=== PATIENT | female | born 1955 | race Caucasian/White ===

== ENCOUNTER → 2020-01-23 14:19 | Outpatient (CLI) | payer MEDICARE, BC, SELFPAY ==
--- NOTE | 2020-01-23 14:40 | BD_ITS ---
STUDY: DUAL ENERGY X-RAY ABSORPTIOMETRY / DXA REASON FOR EXAM: Female, 64 years old. Age of steven 44. Pat is 147.3# and 62.5 and quot; a loss of 1.5 and quot; per pat. Past hx of smoking a long time ago for a short while. Past use of estrogen a long time ago. Type II diabetic and takes metformin. Pat takes Lamictal for seizures. Takes 150 mg of calcium. Has taken Fosamax for 8 years now just went off of it. Does not exercise. Hx of a right hip replacement. TECHNIQUE: Bone Mineral Density (BMD) measurements of lumbar spine and left hip were obtained. COMPARISON: None. FINDINGS: Lumbar Spine (L1-L4): g/cm2 (1.036) / T-score (-1.1) / Z-score (0.5) Findings are suggestive of osteopenia with a low fracture risk. Increased kyphosis. Left Femur Total: g/cm2 (0.793) / T-score (-1.7) / Z-score (-0.5) Left Femoral Neck: g/cm2 (0.724) / T-score (-2.3) / Z-score (-0.8) BD/Dexa Bone Density Study IMPRESSION: The patient is considered osteopenic as outlined below according to World Jovi Organization (WHO) criteria with a high fracture risk. Reference Information: The T-score is the number of standard deviations above or below the standard which is normal for young adults at their peak bone mineral density. The World Health Organization (WHO) interprets the T-scores as follows: Above -1 Normal bone density Between -1 and -2.5 Osteopenia Equal to / or below -2.5 Osteoporosis As a practical clinical guideline, osteopenia may be graded as follows: Mild -1 through -1.5 Moderate -1.6 through -2.0 Severe -2.1 through -2.4 The Z-score is the number of standard deviations above or below age-matched controls. A Z-score of less than -1.5 would be considered abnormal. References: 1. NIH Osteoporosis and Related Bone Diseases http://www.osteo.org 2. International Society for Clinical Densitometry http://www.iscd.org 3. National Osteoporosis Foundation http://www.nof.org Electronically Signed: Jimy Foster, at 9:14 EDT , Service support ,
== END ==
PROVIDERS: PCP Family Medicine; Referring Provider Family Medicine; Visit Provider Family Medicine
DX: M81.0 Age-related osteoporosis without current pathological fracture (principal)
CPT/HCPCS: 77080

== ENCOUNTER → 2020-05-09 16:10 | Outpatient (CLI) | payer MEDICARE, BC, SELFPAY ==
[2020-05-09 18:05] LABS: Hemoglobin A1c 6.2 % (3.8-5.6); Vitamin D,25 Hydroxy 43.3 ng/mL
[2020-05-09 18:07] LABS: Absolute Lymphocyte Count 1.39 X10^3/uL (0.83-4.51); Absolute Neutrophil Count 3.4 X10^3/uL (2.0-7.7); Basophil# 0.04 X10^3/uL; Basophil% 0.7 % (0-1); Eosinophil# 0.23 X10^3/uL; Eosinophils% 4.2 % (0-5); Hemoglobin 12.4 g/dL (12.0-15.0); Lymphocyte # 1.39 X10^3/ul (4.0); Lymphocyte % 25.2 % (19-41); Mean Corp Hgb Conc 31.8 g/dL (32-36); Mean Corpuscular Hgb 30.2 pg (27.0-32.0); Mean Corpuscular Volume 95.1 fL (81-99); Mean Platelet Vol. 11.9 fl (6.2-12.0); Monocyte# 0.45 X10^3/uL; Monocyte% 8.2 % (0-10); NRBC Flagged by Analyzer 0 % (0-5); Neutrophil % 61.5 % (47-70); Platelet Count 160 K/mm3 (150-450); RBC Distribution Width CV 12.6 % (11.6-14.6); RBC Distribution Width SD 44.4 fl (35.1-43.9); White Blood Count 5.5 K/mm3 (4.4-11.0)
[2020-05-09 18:15] LABS: ALB/GLOB Ratio 1.1 RATIO (0.9-2.4); AST(SGOT) 14 U/L (15-37); Alanine Aminotransfer ALT/SGPT 20 U/L (13-56); Albumin, Serum 4.1 g/dL (3.2-5.0); Alkaline Phosphatase 48 U/L (45-117); Anion Gap 8 (5-15); BUN 31 mg/dL (7-18); BUN/Creat Ratio 30.7 RATIO (10-20); Calcium,Total 9.6 mg/dL (8.5-10.1); Chloride 103 mmol/L (98-107); Cholesterol 158 mg/dL (200); Creatinine, Serum 1.01 mg/dL (0.55-1.02); EST Glomerular Filtration Rate 58 mL/min (>60); Est Glom Filt Rate - Afr Amer 71 mL/min (>60); Globulin 3.8 g/dL (2.2-4.2); Glucose 153 mg/dL (74-106); High Density Lipoprotein 50 mg/dL; Phosphorus 3.6 mg/dL (2.5-4.9); Potassium 3.9 mmol/L (3.5-5.1); Protein, Total 7.9 g/dL (6.4-8.2); Sodium Level 141 mmol/L (136-145); Thyroid Stim Hormone (TSH) 1.08 uIU/mL (0.358-3.74); Triglycerides 200 mg/dL; Very Low Density Lipoprotein 40 mg/dL (5-40)
== END ==
PROVIDERS: PCP Family Medicine; Referring Provider Family Medicine; Visit Provider Family Medicine
DX: I10 Essential (primary) hypertension (principal); E11.9 Type 2 diabetes mellitus without complications; E78.00 Pure hypercholesterolemia, unspecified; M85.80 Other specified disorders of bone density and structure, unspecified site
CPT/HCPCS: 36415; 80053; 80061; 82306; 83036; 84100; 84443; 85025

== ENCOUNTER → 2020-10-10 17:49 | Outpatient (CLI) | payer MEDICARE, BC, SELFPAY ==
[2020-10-10 19:28] LABS: Probe Check PASS; Specimen Processing Control PASS
== END ==
PROVIDERS: PCP Family Medicine; Referring Provider Family Medicine; Visit Provider Family Medicine
DX: J01.90 Acute sinusitis, unspecified (principal)
CPT/HCPCS: 87635; U0002

== ENCOUNTER → 2020-10-14 10:00 | Outpatient (CLI) | payer MEDICARE, BC, SELFPAY ==
[2020-10-14 12:22] LABS: Hemoglobin A1c 6.4 % (3.8-5.6)
[2020-10-14 12:24] LABS: Vitamin D,25 Hydroxy 52.6 ng/mL
[2020-10-14 12:29] LABS: AST(SGOT) 16 U/L (15-37); Alanine Aminotransfer ALT/SGPT 21 U/L (13-56); Albumin, Serum 3.9 g/dL (3.2-5.0); Alkaline Phosphatase 54 U/L (45-117); Anion Gap 7 (5-15); BUN 31 mg/dL (7-18); BUN/Creat Ratio 30.4 RATIO (10-20); Calcium,Total 10.2 mg/dL (8.5-10.1); Chloride 102 mmol/L (98-107); Cholesterol 146 mg/dL (200); Creatinine, Serum 1.02 mg/dL (0.55-1.02); EST Glomerular Filtration Rate 58 mL/min (>60); Est Glom Filt Rate - Afr Amer 70 mL/min (>60); Globulin 3.8 g/dL (2.2-4.2); Glucose 140 mg/dL (74-106); High Density Lipoprotein 39 mg/dL; Potassium 4.4 mmol/L (3.5-5.1); Protein, Total 7.7 g/dL (6.4-8.2); Sodium Level 138 mmol/L (136-145); Thyroid Stim Hormone (TSH) 0.93 uIU/mL (0.358-3.74); Triglycerides 106 mg/dL; Very Low Density Lipoprotein 21 mg/dL (5-40)
[2020-10-14 12:37] LABS: Microalbumin,Random Urine 11.8 mg/L (NO RANGE EST.); PTHIN 9.3 pg/mL (18.4-80.1)
== END ==
PROVIDERS: PCP Family Medicine; Referring Provider Family Medicine; Visit Provider Family Medicine
DX: E83.52 Hypercalcemia (principal); E11.69 Type 2 diabetes mellitus with other specified complication
CPT/HCPCS: 36415; 80053; 80061; 82043; 82306; 82570; 83036; 83970; 84443

== ENCOUNTER → 2020-12-27 07:08 | Outpatient (CLI) | payer MEDICARE, BC, SELFPAY ==
[2020-12-17 10:18] VITALS: BMI 25.6
--- NOTE | 2020-12-27 07:09 | MRI_ITS ---
STUDY: MRI BRAIN WITH AND WITHOUT CONTRAST REASON FOR EXAM: Female, 65 years old. Hx of Epilepsy, new onset of shaking in the morning TECHNIQUE: Standardized multiplanar fat and water weighted pulse sequences were obtained. 13ml DOtarem via IV was administered for the contrast portion of the examination. COMPARISON: None. FINDINGS: There are mild scattered white matter gliotic foci, age-appropriate. There are no focal cortical brain lesions. There is no acute infarct or abnormal enhancement. The graft there are no extra parenchymal fluid collections, hydrocephalus or herniation. Major vascular flow structures are intact. MRI/Brain W/WO Contrast IMPRESSION: 1. No acute or focal abnormalities. 2. Mild age-appropriate white matter changes. Electronically Signed: Scarlet Diego MD at 20:13 EDT Tel , Service support ,
[2020-12-27 08:01] LABS: CREATININE FINGERSTICK 1.3 mg/dL (0.55-1.02)
== END ==
PROVIDERS: PCP Family Medicine; Referring Provider Psychiatry & Neurology Neurology; Visit Provider Psychiatry & Neurology Neurology
DX: G40.909 Epilepsy, unspecified, not intractable, without status epilepticus (principal)
CPT/HCPCS: 70553; A9575

== ENCOUNTER → 2021-01-10 09:17 | Outpatient (CLI) | payer MEDICARE, BC, SELFPAY ==
[2020-12-17 10:18] VITALS: BMI 25.6
[2021-01-10 10:38] LABS: Hemoglobin A1c 6.6 % (3.8-5.6)
[2021-01-10 10:39] LABS: Vitamin D,25 Hydroxy 44.2 ng/mL
[2021-01-10 10:56] LABS: ALB/GLOB Ratio 1.1 RATIO (0.9-2.4); AST(SGOT) 22 U/L (15-37); Alanine Aminotransfer ALT/SGPT 21 U/L (13-56); Alkaline Phosphatase 54 U/L (45-117); Anion Gap 6 (5-15); BUN 27 mg/dL (7-18); Calcium,Total 9.6 mg/dL (8.5-10.1); Chloride 104 mmol/L (98-107); Cholesterol 129 mg/dL (200); Creatinine, Serum 0.75 mg/dL (0.55-1.02); EST Glomerular Filtration Rate 82 mL/min (>60); Est Glom Filt Rate - Afr Amer 99 mL/min (>60); Globulin 3.6 g/dL (2.2-4.2); Glucose 139 mg/dL (74-106); High Density Lipoprotein 46 mg/dL; Phosphorus 2.9 mg/dL (2.5-4.9); Potassium 4.4 mmol/L (3.5-5.1); Protein, Total 7.6 g/dL (6.4-8.2); Sodium Level 138 mmol/L (136-145); Triglycerides 86 mg/dL; Very Low Density Lipoprotein 17 mg/dL (5-40)
[2021-01-10 12:50] LABS: Microalbumin,Random Urine 32.7 mg/L (NO RANGE EST.); Microalbumin:Creatinine Ratio 49.4 mg/g CRE (<30 mg/g CRE)
== END ==
PROVIDERS: PCP Family Medicine; Referring Provider Family Medicine; Visit Provider Family Medicine
DX: E11.9 Type 2 diabetes mellitus without complications (principal); E83.52 Hypercalcemia
CPT/HCPCS: 36415; 80053; 80061; 82043; 82306; 82330; 82570; 83036; 83970; 84100

== ENCOUNTER → 2021-01-28 08:07 | Outpatient (CLI) | payer MEDICARE, BC, SELFPAY ==
[2020-12-17 10:18] VITALS: BMI 25.6
[2021-01-28 08:51] LABS: Ammonia < 10.0 umol/L (11-32)
[2021-01-28 09:27] LABS: Vitamin B12 355 pg/mL (211-911)
[2021-01-30 16:12] LABS: Free Kappa Light Chains 21.6 mg/L (3.3-19.4); Free Lambda Light Chains 18.7 mg/L (5.7-26.3)
[2021-01-30 16:58] LABS: Lamotrigine (Lamictal) Level 5.2 ug/mL (2.0-20.0)
== END ==
PROVIDERS: PCP Family Medicine; Referring Provider Psychiatry & Neurology Neurology; Visit Provider Psychiatry & Neurology Neurology
DX: G40.909 Epilepsy, unspecified, not intractable, without status epilepticus (principal)
CPT/HCPCS: 36415; 82140; 82542; 82607; 82746; 83883

== ENCOUNTER → 2021-02-17 06:23 | Outpatient (CLI) | payer MEDICARE, BC, SELFPAY ==
[2020-12-17 10:18] VITALS: BMI 25.6
--- NOTE | 2021-02-17 08:16 | TELEMED_ITS ---
[facility] has confirmed receipt of a request for visit. This document confirms receipt of the order initiating the consult. To find the results of the consultation, please view the patient's reports for the scanned Telemed Consult.
== END ==
PROVIDERS: PCP Family Medicine; Referring Provider Psychiatry & Neurology Neurology; Visit Provider Psychiatry & Neurology Neurology
DX: G40.909 Epilepsy, unspecified, not intractable, without status epilepticus (principal)
CPT/HCPCS: 95819

== ENCOUNTER → 2021-04-15 08:32 | Outpatient (CLI) | payer MEDICARE, BC, SELFPAY ==
[2021-04-15 10:06] LABS: Absolute Lymphocyte Count 1.36 X10^3/uL (0.83-4.51); Absolute Neutrophil Count 4.7 X10^3/uL (2.0-7.7); Basophil# 0.03 X10^3/uL; Basophil% 0.4 % (0-1); Eosinophil# 0.24 X10^3/uL; Eosinophils% 3.4 % (0-5); Hematocrit 34.1 % (37-47); Hemoglobin 10.7 g/dL (12.0-15.0); Lymphocyte # 1.36 X10^3/ul (0.83-4.51); Lymphocyte % 19.3 % (19-41); Mean Corp Hgb Conc 31.4 g/dL (32-36); Mean Corpuscular Hgb 29.3 pg (27.0-32.0); Mean Corpuscular Volume 93.4 fL (81-99); Mean Platelet Vol. 10.4 fl (6.2-12.0); Monocyte# 0.61 X10^3/uL; Monocyte% 8.7 % (0-10); NRBC Flagged by Analyzer 0 % (0-5); Neutrophil # 4.74 X10^3/uL (2.7-7.7); Neutrophil % 67.3 % (47-70); Platelet Count 537 K/mm3 (150-450); RBC Distribution Width CV 14.5 % (11.6-14.6); RBC Distribution Width SD 49.1 fl (35.1-43.9); Red Blood Count 3.65 M/mm3 (4.2-5.4)
[2021-04-15 10:27] LABS: AST(SGOT) 18 U/L (15-37); Alanine Aminotransfer ALT/SGPT 18 U/L (13-56); Albumin, Serum 3.9 g/dL (3.2-5.0); Alkaline Phosphatase 43 U/L (45-117); Anion Gap 9 (5-15); BUN 39 mg/dL (7-18); BUN/Creat Ratio 31.7 RATIO (10-20); Calcium,Total 10.1 mg/dL (8.5-10.1); Chloride 101 mmol/L (98-107); Cholesterol 124 mg/dL (200); Creatinine, Serum 1.23 mg/dL (0.55-1.02); EST Glomerular Filtration Rate 46 mL/min (>60); Est Glom Filt Rate - Afr Amer 56 mL/min (>60); Globulin 4.1 g/dL (2.2-4.2); Glucose 110 mg/dL (74-106); High Density Lipoprotein 35 mg/dL; Potassium 4.6 mmol/L (3.5-5.1); Sodium Level 138 mmol/L (136-145); Triglycerides 113 mg/dL; Very Low Density Lipoprotein 23 mg/dL (5-40)
[2021-04-15 10:34] LABS: Hemoglobin A1c 6.5 % (3.8-5.6)
[2021-04-15 10:50] LABS: Microalbumin,Random Urine 32.4 mg/L (NO RANGE EST.); Microalbumin:Creatinine Ratio 39.4 mg/g CRE (<30 mg/g CRE)
== END ==
PROVIDERS: PCP Family Medicine; Referring Provider Family Medicine; Visit Provider Family Medicine
DX: E83.119 Hemochromatosis, unspecified (principal); E11.69 Type 2 diabetes mellitus with other specified complication; E11.59 Type 2 diabetes mellitus with other circulatory complications
CPT/HCPCS: 36415; 80053; 80061; 82043; 82570; 83036; 85025

== ENCOUNTER → 2021-04-30 08:28 | Outpatient (CLI) | payer MEDICARE, BC, SELFPAY ==
--- NOTE | 2021-04-30 08:52 | RAD_ITS ---
STUDY: X-RAY - ESOPHAGUS (BARIUM SWALLOW) WITH FLUOROSCOPY REASON FOR EXAM: Female, 65 years old. DYSPHAGIA TECHNIQUE: 17 view(s) of the esophagus were obtained following swallowing of barium. FLUOROSCOPY TIME (if supplied): (41 seconds) minutes/seconds COMPARISON: None. FINDINGS: There is no demonstrated esophageal foreign body. There is no demonstrated stricture or mucosal abnormality. There is a small hiatal hernia of the fundus of the stomach. The patient ingested a 12 mm tablet of barium without any difficulty. There is atherosclerotic calcification of the aortic arch with tortuosity of the descending aorta. Normal visualized pulmonary parenchyma. There are diffuse degenerative changes of the visualized thoracic spine. RAD/Esophagus Dual Contrast IMPRESSION: Small sliding hiatal hernia without gastroesophageal reflux. Electronically Signed: Jimy Foster MD at 15:19 EDT , Service support ,
[2021-04-30 09:47] LABS: Ammonia < 10.0 umol/L (11-32)
[2021-05-02 18:07] LABS: Albumin 4.4 g/dL (2.9-4.4); Alpha-1-Globulins 0.2 g/dL (0.0-0.4); Alpha-2-Globulins 1.1 g/dL (0.4-1.0); Gamma Globulin 0.8 g/dL (0.4-1.8); Immunoglobulin A 189 mg/dL (87-352); Immunoglobulin G 784 mg/dL (586-1602); Immunoglobulin M 143 mg/dL (26-217); PROEL- TOTAL PROTEIN 7.5 g/dL (6.0-8.5)
[2021-05-02 18:17] LABS: Lamotrigine (Lamictal) Level 6.5 ug/mL (2.0-20.0)
== END ==
PROVIDERS: Nurse Practitioner Family; PCP Family Medicine; Visit Provider Family Medicine
DX: R13.10 Dysphagia, unspecified (principal); G40.909 Epilepsy, unspecified, not intractable, without status epilepticus; G62.9 Polyneuropathy, unspecified
CPT/HCPCS: 36415; 74221; 82140; 82542; 82784; 84165; 86334; 86335

== ENCOUNTER → 2021-05-27 12:10 | Outpatient (CLI) | payer MEDICARE, BC, SELFPAY ==
[2021-05-27 15:26] LABS: Anion Gap 7 (5-15); BUN 24 mg/dL (7-18); BUN/Creat Ratio 22.4 RATIO (10-20); Calcium,Total 10.3 mg/dL (8.5-10.1); Chloride 102 mmol/L (98-107); Creatinine, Serum 1.07 mg/dL (0.55-1.02); EST Glomerular Filtration Rate 54 mL/min (>60); Est Glom Filt Rate - Afr Amer 66 mL/min (>60); Glucose 89 mg/dL (74-106); Potassium 4.5 mmol/L (3.5-5.1); Sodium Level 136 mmol/L (136-145)
== END ==
PROVIDERS: PCP Family Medicine; Referring Provider Family Medicine; Visit Provider Family Medicine
DX: N18.9 Chronic kidney disease, unspecified (principal)
CPT/HCPCS: 36415; 80048

== ENCOUNTER 2021-08-11 08:30 | Outpatient (CLI) | payer MEDICARE, BC, SELFPAY ==
[2021-08-11 10:14] LABS: Absolute Lymphocyte Count 1.01 X10^3/uL (0.83-4.51); Absolute Neutrophil Count 3.5 X10^3/uL (2.0-7.7); Basophil# 0.04 X10^3/uL; Basophil% 0.8 % (0-1); Eosinophil# 0.23 X10^3/uL; Eosinophils% 4.4 % (0-5); Hematocrit 34.3 % (37-47); Hemoglobin 10.8 g/dL (12.0-15.0); Lymphocyte # 1.01 X10^3/ul (0.83-4.51); Lymphocyte % 19.5 % (19-41); Mean Corp Hgb Conc 31.5 g/dL (32-36); Mean Corpuscular Hgb 27.8 pg (27.0-32.0); Mean Corpuscular Volume 88.4 fL (81-99); Mean Platelet Vol. 10.4 fl (6.2-12.0); Monocyte# 0.39 X10^3/uL; Monocyte% 7.5 % (0-10); NRBC Flagged by Analyzer 0 % (0-5); Neutrophil # 3.49 X10^3/uL (2.7-7.7); Neutrophil % 67.4 % (47-70); Platelet Count 213 K/mm3 (150-450); RBC Distribution Width CV 15.3 % (11.6-14.6); RBC Distribution Width SD 49.5 fl (35.1-43.9); Red Blood Count 3.88 M/mm3 (4.2-5.4); White Blood Count 5.2 K/mm3 (4.4-11.0)
[2021-08-11 10:32] LABS: Vitamin D,25 Hydroxy 44.2 ng/mL
[2021-08-11 10:37] LABS: AST(SGOT) 16 U/L (15-37); Alanine Aminotransfer ALT/SGPT 19 U/L (13-56); Alkaline Phosphatase 44 U/L (45-117); Anion Gap 5 (5-15); BUN 22 mg/dL (7-18); BUN/Creat Ratio 23.2 RATIO (10-20); Calcium,Total 10.1 mg/dL (8.5-10.1); Chloride 107 mmol/L (98-107); Cholesterol 129 mg/dL (200); Creatinine, Serum 0.95 mg/dL (0.55-1.02); EST Glomerular Filtration Rate 62 mL/min (>60); Est Glom Filt Rate - Afr Amer 75 mL/min (>60); Globulin 3.9 g/dL (2.2-4.2); Glucose 114 mg/dL (74-106); High Density Lipoprotein 52 mg/dL; Magnesium 2.1 mg/dL (1.6-2.6); Potassium 4.5 mmol/L (3.5-5.1); Protein, Total 7.9 g/dL (6.4-8.2); Sodium Level 139 mmol/L (136-145); Triglycerides 57 mg/dL; Very Low Density Lipoprotein 11 mg/dL (5-40)
[2021-08-11 10:49] LABS: Hemoglobin A1c 6.5 % (3.8-5.6)
== END 2021-08-11 23:59 | disposition short-term general hospital (02) ==
LOC: MFPLAB 08:32
PROVIDERS: PCP Family Medicine; Visit Provider Family Medicine
DX: E11.59 Type 2 diabetes mellitus with other circulatory complications (principal); E11.69 Type 2 diabetes mellitus with other specified complication; E11.21 Type 2 diabetes mellitus with diabetic nephropathy; M81.0 Age-related osteoporosis without current pathological fracture
CPT/HCPCS: 36415; 80053; 80061; 82043; 82306; 82570; 83036; 83735; 85025

== ENCOUNTER 2021-10-23 11:10 | Outpatient (CLI) | payer MEDICARE, BC, SELFPAY ==
[2021-10-23 12:22] LABS: ALB/GLOB Ratio 1.1 RATIO (0.9-2.4); AST(SGOT) 20 U/L (15-37); Alanine Aminotransfer ALT/SGPT 26 U/L (13-56); Albumin, Serum 4.3 g/dL (3.2-5.0); Alkaline Phosphatase 50 U/L (45-117); Anion Gap 3 (5-15); BUN 20 mg/dL (7-18); BUN/Creat Ratio 20.6 RATIO (10-20); Chloride 106 mmol/L (98-107); Creatinine, Serum 0.97 mg/dL (0.55-1.02); EST Glomerular Filtration Rate 61 mL/min (>60); Est Glom Filt Rate - Afr Amer 74 mL/min (>60); Glucose 123 mg/dL (74-106); Potassium 4.3 mmol/L (3.5-5.1); Protein, Total 8.3 g/dL (6.4-8.2); Sodium Level 138 mmol/L (136-145)
[2021-10-23 12:27] LABS: Vitamin D,25 Hydroxy 43.9 ng/mL
== END 2021-10-23 23:59 | disposition home or self-care (01) ==
LOC: MFPLAB 11:11
PROVIDERS: PCP Family Medicine; Referring Provider Family Medicine; Visit Provider Family Medicine
DX: M81.0 Age-related osteoporosis without current pathological fracture (principal)
CPT/HCPCS: 36415; 80053; 82306

== ENCOUNTER → 2022-01-27 | Outpatient (CLI) | payer MEDICARE, BC, SELFPAY ==
--- NOTE | 2022-01-27 09:48 | BI_ITS ---
MAMMOGRAPHY - BILATERAL SCREENING REASON FOR EXAM: Female, 66 years old. Routine annual screening examination. PERTINENT HISTORY: Aunt with breast cancer. TECHNIQUE: Digital bilateral breast yosi (3D mammographic acquisition) in the CC and MLO projections. 2-D mediolateral oblique (MLO) and craniocaudad (CC) views of both breasts were obtained. CAD: Full Field Digital Mammography with Computer Added Detection was performed. COMPARISON: Comparison is made with prior outside examination of 02/05/2020. FINDINGS: Breast Composition: There are scattered areas of fibroglandular density. Stable 1 cm x 1 cm well-defined nodule in the deep slightly inferior central portion of the right breast. Correlation with ultrasound is recommended. No other significant abnormalities are identified. There has been no significant change since the prior study. BI/SCRN MAMM (CAD)W/YOSI BILAT IMPRESSION: Stable bilateral screening mammogram. Correlation with a targeted ultrasound of the right breast as described. ASSESSMENT CATEGORY: BIRADS Category 0: Incomplete. Need additional imaging evaluation. A letter regarding these results will be sent to the patient by the facility within 30 days. Approximately 10% of breast cancers are not detected by mammography. A normal mammogram should not delay biopsy of a clinically suspicious abnormality. [id number] Electronically Signed: Jimy Foster MD at 13:29 EDT ,
--- NOTE | 2022-01-27 09:52 | BD_ITS ---
STUDY: DUAL ENERGY X-RAY ABSORPTIOMETRY / DXA REASON FOR EXAM: Female, 66 years old. 733.00OsteoporosisBONE DENSITY REASON FOR EXAM TECHNIQUE: Bone Mineral Density (BMD) measurements of lumbar spine and bilateral hips were obtained. COMPARISON: Comparison is made with prior study 01/23/2020. FINDINGS: Lumbar Spine (L1-L4): g/cm2 (0.912) / T-score (-1.1) / Z-score (0.8) Findings are suggestive of osteopenia with a low fracture risk. Left Femur Total: g/cm2 (0.733) / T-score (-1.7) / Z-score (-0.3) Left Femoral Neck: g/cm2 (0.569) / T-score (-2.5) / Z-score (-0.9) The T-Scores on the most recent prior examination were: Lumbar Spine (L1-L4): There has been worsening of bone density since the previous examination. Left Femur Total: which represents no significant change. . BD/Dexa Bone Density Study IMPRESSION: The patient is considered osteopenic as outlined below according to World Jovi Organization (WHO) criteria with a high fracture risk. There has been worsening of bone density since the previous examination. Reference Information: The T-score is the number of standard deviations above or below the standard which is normal for young adults at their peak bone mineral density. The World Health Organization (WHO) interprets the T-scores as follows: Above -1 Normal bone density Between -1 and -2.5 Osteopenia Equal to / or below -2.5 Osteoporosis As a practical clinical guideline, osteopenia may be graded as follows: Mild -1 through -1.5 Moderate -1.6 through -2.0 Severe -2.1 through -2.4 The Z-score is the number of standard deviations above or below age-matched controls. A Z-score of less than -1.5 would be considered abnormal. References: 1. NIH Osteoporosis and Related Bone Diseases www osteo.org 2. International Society for Clinical Densitometry www iscd.org 3. National Osteoporosis Foundation www nof.org Electronically Signed: Jimy Foster MD at 15:22 EDT ,
== END | disposition home or self-care (01) ==
LOC: OPBD 09:44
PROVIDERS: PCP Family Medicine; Referring Provider Family Medicine; Visit Provider Family Medicine
DX: M81.0 Age-related osteoporosis without current pathological fracture (principal); Z12.31 Encounter for screening mammogram for malignant neoplasm of breast
CPT/HCPCS: 77063; 77067; 77080

== ENCOUNTER → 2022-01-29 | Outpatient (CLI) | payer MEDICARE, BC, SELFPAY ==
--- NOTE | 2022-01-29 10:59 | US_ITS ---
STUDY: ULTRASOUND BREAST - RIGHT REASON FOR EXAM: Female, 66 years old. Abnormal screening mammogram. TECHNIQUE: Axial and longitudinal images of the RIGHT breast were performed with a high resolution ultrasound transducer. # OF IMAGES: 22 COMPARISON: Comparison is made with prior mammogram dated 01/27/2022. FINDINGS: RIGHT Breast: The mammographic abnormality corresponds to a 6 mm x 9 mm x 5 mm defined hypoechoic nodule at the 6 o''clock position of the breast at 6 cm from nipple biopsy recommended. US/Breast Limited Unilateral IMPRESSION: 6 mm x 9 mm x 5 mm well-defined hypoechoic nodule at the 6 o''clock position of the breast at 6 cm from nipple. Biopsy recommended. ASSESSMENT CATEGORY: BIRADS Category 4: Suspicious - Biopsy Should Be Considered. A letter regarding these results will be sent to the patient by the facility within 30 days. Electronically Signed: Jimy Foster MD at 11:50 EDT ,
== END | disposition home or self-care (01) ==
LOC: OPUS 10:58
PROVIDERS: PCP Family Medicine; Visit Provider Family Medicine
DX: R92.8 Other abnormal and inconclusive findings on diagnostic imaging of breast (principal)
CPT/HCPCS: 76642

== ENCOUNTER 2022-02-09 13:06 | Outpatient (CLI) | payer MEDICARE, BC, SELFPAY ==
--- NOTE | 2022-02-09 15:30 | BRBX_PTH ---
PATIENT: OVI RICHARDSON LOC: [facility] U#:[id number] AGE/SX: 66/F ROOM: RE02/09/[address]: Dr. Conner Deleon MD : 1955 BED: DIS: 02/09/2022 SPEC #: [id number] RECD: 02/09/22 16:15 STATUS: ZARI WILLIAMSON #: [id number] JANE: 02/09/22 15:[address]: Conner Deleon DEPT: SURGICAL PATHOLOGY RECD BY: Gato Jerez ENTERED: 02/10/22 06:41 SP TYPE: BREAST BX OTHR DR: Dr. Be Grullon MD Tissues: Right breast, NOS Procedures: Surgery Specimen Level IV HEADER OPERATION: Right breast biopsy PRE-OP DIAGNOSIS: Abnormal right breast ultrasound TISSUE SUBMITTED: Right breast tissue FIXATION TIME: 28 hours MICROSCOPIC DIAGNOSIS Right breast, core biopsy: Hyalinized fibroadenoma. Negative for atypia or malignancy. See comment. ARABELLA:panfilo 02/11/2022 COMMENT Correlation with clinical, radiologic findings and appropriate follow up are necessary. MICROSCOPIC DESCRIPTION Slides are reviewed. GROSS DESCRIPTION Received in fixative is one container labeled with the patient's name and designated right breast. The specimen consists of multiple elongated fragments of jang-yellow fibroadipose tissue that in aggregate measure 0.8 x 0.8 x 0.1 cm. The entire specimen is submitted in one cassette. / ARABELLA:panfilo 02/10/2022 TC:1 CPT: [id number]
--- NOTE | 2022-02-09 15:48 | BI_ITS ---
MAMMOGRAPHY - UNILATERAL DIAGNOSTIC: RIGHT BREAST REASON FOR EXAM: Female, 66 years old. Post right biopsy clip placement. PERTINENT HISTORY: Abnormal screening mammogram. Ultrasound-guided breast biopsy. TECHNIQUE: Digital unilateral breast nicol (3D mammographic acquisition) in the CC and MLO projections. 2-D mediolateral oblique (MLO) and craniocaudad (CC) views of both breasts were obtained. CAD: Full Field Digital Mammography with Computer Added Detection was performed. COMPARISON: Comparison is made with prior mammogram dated 01/27/2022. FINDINGS: Breast Composition: There are scattered areas of fibroglandular density. A tissue clip marker is seen within the nodular density in the deep inferior slightly lateral aspect of the breasts. No other significant abnormalities are identified. BI/DIAG MAMM W/CAD, UNILAT IMPRESSION: Status post biopsy of the nodular density in the right breast as described. Tissue clip marker is seen within it. ASSESSMENT CATEGORY: BIRADS Category 2: Benign. A letter regarding these results will be sent to the patient by the facility within 30 days. Approximately 10% of breast cancers are not detected by mammography. A normal mammogram should not delay biopsy of a clinically suspicious abnormality. Electronically Signed: Jimy Foster MD at 8:34 EDT ,
== END 2022-02-09 23:59 | disposition home or self-care (01) ==
LOC: OPBI 02-12 13:07
PROVIDERS: PCP Family Medicine; Referring Provider Surgery; Visit Provider Surgery
DX: R92.8 Other abnormal and inconclusive findings on diagnostic imaging of breast (principal); R92.2 Inconclusive mammogram
CPT/HCPCS: 77065; 88305

== ENCOUNTER → 2022-02-09 | Outpatient (CLI) | payer MEDICARE, BC, SELFPAY | END | disposition home or self-care (01) | LOC: LABSPEC 16:31 | PROVIDERS: PCP Family Medicine; Referring Provider Surgery; Visit Provider Surgery | DX: Z00.00 Encounter for general adult medical examination without abnormal findings (principal) ==

== ENCOUNTER → 2022-02-12 | Outpatient (CLI) | payer MEDICARE, BC, SELFPAY ==
[2022-02-12 10:00] LABS: Bacteria 0 SEEN /hpf (None Seen); Mucous, Urine 0 SEEN /hpf (<or=2+); Red Blood Cells-Urine 0 SEEN /hpf (0-5); Squamous Epithelial Cells - UA 0 SEEN /hpf (5-10)
[2022-02-12 12:11] LABS: Color, Urine Straw (Yellow); Glucose, Dipstick 50 mg/dl (Normal); Ketone-Dipstick Negative (Negative); Leukocyte Esterase-Dipstick 500 /ul (Negative); Nitrite-Dipstick Negative (Negative); Occult Blood-Urine Negative /ul (Negative); Protein-Dipstick Negative (Negative); Urine Bilirubin Dipstick Negative (Negative); Urine Clarity Clear (Clear); Urine Urobilinogen Normal (Normal); Urine pH 6.5 (5.0 - 8.0)
[2022-02-12 12:12] LABS: Absolute Lymphocyte Count 0.97 X10^3/uL (0.83-4.51); Absolute Neutrophil Count 3.5 X10^3/uL (2.0-7.7); Basophil# 0.03 X10^3/uL; Basophil% 0.6 % (0-1); Eosinophil# 0.26 X10^3/uL; Hematocrit 34.8 % (37-47); Hemoglobin 10.9 g/dL (12.0-15.0); Lymphocyte # 0.97 X10^3/ul (0.83-4.51); Lymphocyte % 18.8 % (19-41); Mean Corp Hgb Conc 31.3 g/dL (32-36); Mean Corpuscular Hgb 27.7 pg (27.0-32.0); Mean Corpuscular Volume 88.3 fL (81-99); Monocyte# 0.44 X10^3/uL; Monocyte% 8.5 % (0-10); NRBC Flagged by Analyzer 0 % (0-5); Neutrophil # 3.46 X10^3/uL (2.7-7.7); Neutrophil % 66.9 % (47-70); Platelet Count 218 K/mm3 (150-450); RBC Distribution Width CV 15.5 % (11.6-14.6); Red Blood Count 3.94 M/mm3 (4.2-5.4); White Blood Count 5.2 K/mm3 (4.4-11.0)
[2022-02-12 12:38] LABS: PTHIN 15.6 pg/mL (18.4-80.1); White Blood Cells 25-50 SEEN /hpf (0-5)
[2022-02-12 12:43] LABS: Vitamin D,25 Hydroxy 53.7 ng/mL
[2022-02-12 13:13] LABS: ALB/GLOB Ratio 1.1 RATIO (0.9-2.4); AST(SGOT) 18 U/L (15-37); Alanine Aminotransfer ALT/SGPT 20 U/L (13-56); Albumin, Serum 4.3 g/dL (3.2-5.0); Alkaline Phosphatase 49 U/L (45-117); Anion Gap 5 (5-15); BUN 23 mg/dL (7-18); BUN/Creat Ratio 20.9 RATIO (10-20); Calcium,Total 10.2 mg/dL (8.5-10.1); Chloride 102 mmol/L (98-107); Cholesterol 136 mg/dL (200); EST Glomerular Filtration Rate 53 mL/min (>60); Est Glom Filt Rate - Afr Amer 64 mL/min (>60); Globulin 3.9 g/dL (2.2-4.2); Glucose 228 mg/dL (74-106); High Density Lipoprotein 44 mg/dL; Potassium 4.3 mmol/L (3.5-5.1); Protein, Total 8.2 g/dL (6.4-8.2); Sodium Level 137 mmol/L (136-145); Triglycerides 118 mg/dL; Very Low Density Lipoprotein 24 mg/dL (5-40)
[2022-02-12 13:26] LABS: Microalbumin,Random Urine 7.1 mg/L (NO RANGE EST.); Microalbumin:Creatinine Ratio 34.6 mg/g CRE (<30 mg/g CRE); Protein, Urine (Random) < 6.0 mg/dL (<11.9); Protein:Creat Ratio 263 mg/g CRE (0-200)
== END | disposition home or self-care (01) ==
LOC: MFPLAB 09:55
PROVIDERS: PCP Family Medicine; Referring Provider Family Medicine; Visit Provider Family Medicine
DX: E11.22 Type 2 diabetes mellitus with diabetic chronic kidney disease (principal); N18.9 Chronic kidney disease, unspecified; M81.0 Age-related osteoporosis without current pathological fracture
CPT/HCPCS: 36415; 80053; 80061; 81001; 82043; 82306; 82570; 83036; 83970; 84156; 85025

== ENCOUNTER → 2022-02-18 | Outpatient (CLI) | payer MEDICARE, BC, SELFPAY ==
[2022-02-23 20:07] LABS: Free Kappa Light Chains 21.1 mg/L (3.3-19.4); Free Lambda Light Chains 18.9 mg/L (5.7-26.3)
[2022-02-23 21:36] LABS: Lamotrigine (Lamictal) Level 8.2 ug/mL (2.0-20.0)
== END | disposition home or self-care (01) ==
LOC: MTLAB 11:54
PROVIDERS: Nurse Practitioner Family; PCP Family Medicine; Referring Provider Psychiatry & Neurology Neurology; Visit Provider Psychiatry & Neurology Neurology
DX: G40.909 Epilepsy, unspecified, not intractable, without status epilepticus (principal); G62.9 Polyneuropathy, unspecified
CPT/HCPCS: 36415; 82140; 82542; 83883; 86335

== ENCOUNTER → 2022-05-05 | Outpatient (CLI) | payer MEDICARE, BC, SELFPAY ==
[2022-05-05 11:03] LABS: Bacteria 0 SEEN /hpf (None Seen); Mucous, Urine 0 SEEN /hpf (<or=2+); Squamous Epithelial Cells - UA 0 SEEN /hpf (5-10)
[2022-05-05 12:53] LABS: Absolute Lymphocyte Count 1.15 X10^3/uL (0.83-4.51); Absolute Neutrophil Count 4.1 X10^3/uL (2.0-7.7); Basophil# 0.05 X10^3/uL; Basophil% 0.8 % (0-1); Eosinophil# 0.33 X10^3/uL; Eosinophils% 5.3 % (0-5); Hematocrit 38.1 % (37-47); Hemoglobin 11.8 g/dL (12.0-15.0); Lymphocyte # 1.15 X10^3/ul (0.83-4.51); Lymphocyte % 18.5 % (19-41); Mean Corpuscular Hgb 28.4 pg (27.0-32.0); Mean Corpuscular Volume 91.6 fL (81-99); Mean Platelet Vol. 10.9 fl (6.2-12.0); Monocyte# 0.58 X10^3/uL; Monocyte% 9.3 % (0-10); NRBC Flagged by Analyzer 0 % (0-5); Neutrophil # 4.09 X10^3/uL (2.7-7.7); Neutrophil % 65.6 % (47-70); Platelet Count 269 K/mm3 (150-450); RBC Distribution Width CV 15.5 % (11.6-14.6); RBC Distribution Width SD 52.8 fl (35.1-43.9); Red Blood Count 4.16 M/mm3 (4.2-5.4); White Blood Count 6.2 K/mm3 (4.4-11.0)
[2022-05-05 13:10] LABS: Hemoglobin A1c 6.9 % (3.8-5.6)
[2022-05-05 13:16] LABS: ALB/GLOB Ratio 1.1 RATIO (0.9-2.4); AST(SGOT) 16 U/L (15-37); Alanine Aminotransfer ALT/SGPT 21 U/L (13-56); Albumin, Serum 4.2 g/dL (3.2-5.0); Alkaline Phosphatase 49 U/L (45-117); Anion Gap 7 (5-15); BUN 24 mg/dL (7-18); BUN/Creat Ratio 25.7 RATIO (10-20); Chloride 106 mmol/L (98-107); Cholesterol 128 mg/dL (200); Creatinine, Serum 0.93 mg/dL (0.55-1.02); EST Glomerular Filtration Rate 63 mL/min (>60); Est Glom Filt Rate - Afr Amer 77 mL/min (>60); Globulin 3.8 g/dL (2.2-4.2); Glucose 135 mg/dL (74-106); High Density Lipoprotein 49 mg/dL; Phosphorus 3.3 mg/dL (2.5-4.9); Potassium 4.6 mmol/L (3.5-5.1); Sodium Level 140 mmol/L (136-145); Triglycerides 155 mg/dL; Very Low Density Lipoprotein 31 mg/dL (5-40)
[2022-05-05 13:18] LABS: Color, Urine Straw (Yellow); Glucose, Dipstick 250 mg/dl (Normal); Ketone-Dipstick Negative (Negative); Leukocyte Esterase-Dipstick 500 /ul (Negative); Nitrite-Dipstick Negative (Negative); Occult Blood-Urine 10 /ul (Negative); Protein-Dipstick Negative (Negative); Urine Bilirubin Dipstick Negative (Negative); Urine Clarity Clear (Clear); Urine Urobilinogen Normal (Normal)
[2022-05-05 13:24] LABS: Microalbumin,Random Urine 15.8 mg/L (NO RANGE EST.); Microalbumin:Creatinine Ratio 72.8 mg/g CRE (<30 mg/g CRE); Protein, Urine (Random) 7.1 mg/dL (<11.9); Protein:Creat Ratio 327 mg/g CRE (0-200)
[2022-05-05 13:27] LABS: Red Blood Cells-Urine 0-5 SEEN /hpf (0-5); White Blood Cells 0-5 SEEN /hpf (0-5)
== END | disposition home or self-care (01) ==
LOC: MFPLAB 10:57
PROVIDERS: PCP Family Medicine; Referring Provider Family Medicine; Visit Provider Family Medicine
DX: E11.22 Type 2 diabetes mellitus with diabetic chronic kidney disease (principal); N18.9 Chronic kidney disease, unspecified
CPT/HCPCS: 36415; 80053; 80061; 81001; 82043; 82306; 82570; 83036; 84100; 84156; 85025

== ENCOUNTER → 2022-08-04 | Outpatient (CLI) | payer MEDICARE, BC, SELFPAY | END | disposition home or self-care (01) | LOC: MTLAB 13:53 | PROVIDERS: PCP Family Medicine; Referring Provider Psychiatry & Neurology Neurology; Visit Provider Psychiatry & Neurology Neurology | DX: G40.909 Epilepsy, unspecified, not intractable, without status epilepticus (principal) | CPT/HCPCS: 36415; 82140; 82542 ==

== ENCOUNTER → 2022-10-16 | Outpatient (CLI) | payer MEDICARE, BC, SELFPAY ==
[2022-10-16 10:40] LABS: Bacteria 0 SEEN /hpf (None Seen); Mucous, Urine 0 SEEN /hpf (<or=2+); Red Blood Cells-Urine 0 SEEN /hpf (0-5); Squamous Epithelial Cells - UA 0 SEEN /hpf (5-10)
[2022-10-16 12:13] LABS: Absolute Lymphocyte Count 1.15 X10^3/uL (0.83-4.51); Basophil# 0.04 X10^3/uL; Basophil% 0.8 % (0-1); Eosinophils% 6.1 % (0-5); Hematocrit 37.6 % (37-47); Hemoglobin 11.9 g/dL (12.0-15.0); Lymphocyte # 1.15 X10^3/ul (0.83-4.51); Lymphocyte % 23.4 % (19-41); Mean Corp Hgb Conc 31.6 g/dL (32-36); Mean Corpuscular Hgb 29.5 pg (27.0-32.0); Mean Corpuscular Volume 93.3 fL (81-99); Mean Platelet Vol. 10.7 fl (6.2-12.0); Monocyte# 0.43 X10^3/uL; Monocyte% 8.7 % (0-10); NRBC Flagged by Analyzer 0 % (0-5); Neutrophil # 2.99 X10^3/uL (2.7-7.7); Neutrophil % 60.8 % (47-70); Platelet Count 230 K/mm3 (150-450); RBC Distribution Width CV 15.1 % (11.6-14.6); RBC Distribution Width SD 51.8 fl (35.1-43.9); Red Blood Count 4.03 M/mm3 (4.2-5.4); White Blood Count 4.9 K/mm3 (4.4-11.0)
[2022-10-16 12:40] LABS: ALB/GLOB Ratio 1.3 RATIO (0.9-2.4); AST(SGOT) 24 U/L (15-37); Alanine Aminotransfer ALT/SGPT 26 U/L (13-56); Albumin, Serum 4.3 g/dL (3.2-5.0); Alkaline Phosphatase 33 U/L (45-117); Anion Gap 5 (5-15); BUN 23 mg/dL (7-18); BUN/Creat Ratio 20.7 RATIO (10-20); Chloride 103 mmol/L (98-107); Cholesterol 124 mg/dL (200); Creatinine, Serum 1.11 mg/dL (0.55-1.02); EST Glomerular Filtration Rate 52 mL/min (>60); Est Glom Filt Rate - Afr Amer 63 mL/min (>60); Globulin 3.3 g/dL (2.2-4.2); Glucose 138 mg/dL (74-106); High Density Lipoprotein 44 mg/dL; Phosphorus 3.8 mg/dL (2.5-4.9); Potassium 4.8 mmol/L (3.5-5.1); Protein, Total 7.6 g/dL (6.4-8.2); Sodium Level 136 mmol/L (136-145); Triglycerides 105 mg/dL; Very Low Density Lipoprotein 21 mg/dL (5-40)
[2022-10-16 13:22] LABS: Hemoglobin A1c 6.1 % (3.8-5.6)
[2022-10-16 15:28] LABS: Color, Urine Yellow (Yellow); Glucose, Dipstick 1000 mg/dl (Normal); Ketone-Dipstick Negative (Negative); Leukocyte Esterase-Dipstick 500 /ul (Negative); Nitrite-Dipstick Negative (Negative); Occult Blood-Urine Negative /ul (Negative); Protein-Dipstick Negative (Negative); Specific Gravity, Urine 1.005 (1.002-1.030); Urine Bilirubin Dipstick Negative (Negative); Urine Clarity Clear (Clear); Urine Urobilinogen Normal (Normal); Urine pH 6.5 (5.0 - 8.0)
[2022-10-16 15:45] LABS: White Blood Cells 0-5 SEEN /hpf (0-5)
[2022-10-16 15:51] LABS: Microalbumin,Random Urine 10.2 mg/L (NO RANGE EST.); Microalbumin:Creatinine Ratio 30.7 mg/g CRE (<30 mg/g CRE); Protein, Urine (Random) < 6.0 mg/dL (<11.9)
[2022-10-20 10:34] LABS: Iron 90 ug/dL (50-170); Iron Binding Capacity,Total 339 ug/dL (250-450); PERCENT IRON SATURATION 26.5 % (15.0-55.0)
[2022-10-22 14:18] LABS: Transferrin 258 mg/dL (192-364)
== END | disposition home or self-care (01) ==
LOC: MFPLAB 10:37
PROVIDERS: PCP Family Medicine; Referring Provider Family Medicine; Visit Provider Family Medicine
DX: D64.9 Anemia, unspecified (principal); E11.22 Type 2 diabetes mellitus with diabetic chronic kidney disease; N18.9 Chronic kidney disease, unspecified
CPT/HCPCS: 80053; 80061; 81001; 82043; 82306; 82570; 83036; 83540; 83550; 84100; 84156; 84466; 85025

== ENCOUNTER → 2023-02-02 | Outpatient (CLI) | payer MEDICARE, BC, SELFPAY ==
[2023-02-02 10:56] LABS: Vitamin B12 226 pg/mL (211-911)
[2023-02-02 11:08] LABS: Iron 82 ug/dL (50-170); Iron Binding Capacity,Total 371 ug/dL (250-450)
[2023-02-03 05:07] LABS: Transferrin 271 mg/dL (192-364)
== END | disposition home or self-care (01) ==
LOC: MFPLAB 08:09
PROVIDERS: Psychiatry & Neurology Neurology; PCP Family Medicine; Visit Provider Family Medicine
DX: I10 Essential (primary) hypertension (principal); E03.9 Hypothyroidism, unspecified; D64.9 Anemia, unspecified
CPT/HCPCS: 36415; 82140; 82542; 82607; 83540; 83550; 84466

== ENCOUNTER → 2023-02-18 | Outpatient (CLI) | payer MEDICARE, BC, SELFPAY ==
[2023-02-18 11:17] LABS: Bacteria 0 SEEN /hpf (None Seen); Mucous, Urine 0 SEEN /hpf (<or=2+); Red Blood Cells-Urine 0 SEEN /hpf (0-5); Squamous Epithelial Cells - UA 0 SEEN /hpf (5-10)
[2023-02-18 12:12] LABS: Absolute Neutrophil Count 2.8 X10^3/uL (2.0-7.7); Basophil# 0.06 X10^3/uL; Basophil% 1.4 % (0-1); Eosinophil# 0.25 X10^3/uL; Eosinophils% 5.7 % (0-5); Hematocrit 37.9 % (37-47); Lymphocyte % 20.4 % (19-41); Mean Corp Hgb Conc 31.7 g/dL (32-36); Mean Corpuscular Hgb 30.3 pg (27.0-32.0); Mean Corpuscular Volume 95.7 fL (81-99); Mean Platelet Vol. 9.8 fl (6.2-12.0); Monocyte# 0.37 X10^3/uL; Monocyte% 8.4 % (0-10); NRBC Flagged by Analyzer 0 % (0-5); Neutrophil # 2.82 X10^3/uL (2.7-7.7); Neutrophil % 63.9 % (47-70); Platelet Count 267 K/mm3 (150-450); RBC Distribution Width CV 13.5 % (11.6-14.6); RBC Distribution Width SD 47.7 fl (35.1-43.9); Red Blood Count 3.96 M/mm3 (4.2-5.4); White Blood Count 4.4 K/mm3 (4.4-11.0)
[2023-02-18 12:49] LABS: Vitamin D,25 Hydroxy 47.8 ng/mL
[2023-02-18 13:01] LABS: ALB/GLOB Ratio 1.1 RATIO (0.9-2.4); AST(SGOT) 20 U/L (15-37); Alanine Aminotransfer ALT/SGPT 20 U/L (13-56); Albumin, Serum 4.1 g/dL (3.2-5.0); Alkaline Phosphatase 36 U/L (45-117); Anion Gap 7 (5-15); BUN 18 mg/dL (7-18); BUN/Creat Ratio 16.8 RATIO (10-20); Calcium,Total 9.6 mg/dL (8.5-10.1); Chloride 102 mmol/L (98-107); Cholesterol 125 mg/dL (200); Creatinine, Serum 1.07 mg/dL (0.55-1.02); EST Glomerular Filtration Rate 54 mL/min (>60); Est Glom Filt Rate - Afr Amer 65 mL/min (>60); Globulin 3.6 g/dL (2.2-4.2); Glucose 109 mg/dL (74-106); High Density Lipoprotein 54 mg/dL; Phosphorus 4.1 mg/dL (2.5-4.9); Potassium 4.6 mmol/L (3.5-5.1); Protein, Total 7.7 g/dL (6.4-8.2); Sodium Level 136 mmol/L (136-145); Triglycerides 102 mg/dL; Very Low Density Lipoprotein 20 mg/dL (5-40)
[2023-02-18 13:08] LABS: Color, Urine Yellow (Yellow); Glucose, Dipstick 1000 mg/dl (Normal); Ketone-Dipstick Negative (Negative); Leukocyte Esterase-Dipstick 500 /ul (Negative); Nitrite-Dipstick Negative (Negative); Occult Blood-Urine Negative /ul (Negative); Protein, Urine (Random) < 6.0 mg/dL (<11.9); Protein-Dipstick Negative (Negative); Protein:Creat Ratio 200 mg/g CRE (0-200); Specific Gravity, Urine 1.005 (1.002-1.030); Urine Bilirubin Dipstick Negative (Negative); Urine Clarity Clear (Clear); Urine Urobilinogen Normal (Normal)
[2023-02-18 13:28] LABS: White Blood Cells 5-10 SEEN /hpf (0-5)
== END | disposition home or self-care (01) ==
LOC: MFPLAB 11:10
PROVIDERS: PCP Family Medicine; Visit Provider Family Medicine
DX: E11.22 Type 2 diabetes mellitus with diabetic chronic kidney disease (principal); E11.69 Type 2 diabetes mellitus with other specified complication; N18.9 Chronic kidney disease, unspecified; M81.0 Age-related osteoporosis without current pathological fracture
CPT/HCPCS: 80053; 80061; 81001; 82306; 82570; 83036; 84100; 84156; 85025

== ENCOUNTER → 2023-06-22 | Outpatient (CLI) | payer MEDICARE, BC, SELFPAY ==
--- NOTE | 2023-06-22 09:32 | BI_ITS ---
MAMMOGRAPHY - BILATERAL SCREENING REASON FOR EXAM: Female, 68 years old. Routine annual screening examination. PERTINENT HISTORY: Aunt with breast cancer. Prior right breast biopsy. TECHNIQUE: Digital bilateral breast yosi (3D mammographic acquisition) in the CC and MLO projections. 2-D mediolateral oblique (MLO) and craniocaudad (CC) views of both breasts were obtained. CAD: Full Field Digital Mammography with Computer Added Detection was performed. COMPARISON: Comparison is made with prior examination dated February 09, 2022 and January 27, 2022. FINDINGS: Breast Composition: There are scattered areas of fibroglandular density. There are no dominant masses or suspicious calcifications. 1 cm x 1 cm well-defined nodule in the deep slightly inferior lateral aspect of the right breast. 2 tissue markers are seen within it from prior biopsy. No other significant abnormalities are identified. There has been no significant change since the prior study. BI/SCRN MAMM (CAD)W/YOSI BILAT IMPRESSION: Stable bilateral screening mammogram. Yearly follow-up mammogram recommended. (A) ASSESSMENT CATEGORY: BIRADS Category 2: Benign. A letter regarding these results will be sent to the patient by the facility within 30 days. Approximately 10% of breast cancers are not detected by mammography. A normal mammogram should not delay biopsy of a clinically suspicious abnormality. [id number] Electronically Signed: Jimy Foster MD at 12:28 EST ,
== END | disposition home or self-care (01) ==
LOC: OPBI 09:32
PROVIDERS: PCP Family Medicine; Referring Provider Family Medicine; Visit Provider Family Medicine
DX: Z12.31 Encounter for screening mammogram for malignant neoplasm of breast (principal)
CPT/HCPCS: 77063; 77067

== ENCOUNTER → 2023-09-01 | Outpatient (CLI) | payer MEDICARE, BC, SELFPAY ==
[2023-09-01 10:09] LABS: Mucous, Urine 0 SEEN /hpf (<or=2+); Squamous Epithelial Cells - UA 0 SEEN /hpf (5-10)
--- OUTSIDE RECORDS SUMMARY | 2023-09-01 10:34 | XMS RPT_ITS | CCD ---
Author Name Unknown Address [address] [place] [address] Organization [facility] Care Team Providers Care Tin Pot Operator Name Role Phone JUAREZ BLAIR Attending Unavailable JOSEF, JUAREZ Heredia Attending Unavailable GIOVANNI GARSIA Attending Unavailable Shama Fernandez Primary Care Provider IGOR, DR LORENA Dyer Attending Unavailable IGOR, DR LORENA Dyer Primary Care Unavailable IGOR, DR LORENA Dyer Admitting Unavailable MARIANN, DR MING Irvin Attending Unavaila ble MARIANN, DR MING Irvin Primary Care Unavaila ble MARIANN, DR MING Irvin Admitting Unavaila ble Shama Fernandez Primary Care Provider Shama Fernandez Primary Care Provider Shama Fernandez MD Primary Care Provider SHAMA FERNANDEZ Primary Care Unavailable MASCJUAREZ Lorenzana Referring Unavailable SHAMA FERNANDEZ Primary Care Unavailable JUAREZ BLAIR Referring Unavailable MASCHarriett, JUAREZ Heredia Referring Unavailable SHAMA FERNANDEZ Primary Care Unavailable MASCJUAREZ Lorenzana Referring Unavailable SHAMA FERNANDEZ Primary Care Unavailable MASCJUAREZ Lorenzana Attending Unavailable MASCJUAREZ Lorenzana Referring Unavailable SHAMA FERNANDEZ Primary Care Unavailable MASCJUAREZ Lorenzana Referring Unavailable SHAMA FERNANDEZ Primary Care Unavailable MASCJUAREZ Lorenzana Referring Unavailable SHAMA FERNANDEZ Primary Care Unavailable MASCJUAREZ Lorenzana Referring Unavailable SHAMA FERNANDEZ Primary Care Unavailable MASCI, JUAREZ Heredia Referring Unavailable SHAMA FERNANDEZ Primary Care Unavailable MASCI, JUAREZ Heredia Referring Unavailable MASCHarriett, JUAREZ Heredia Attending Unavailable SHAMA FERNANDEZ Primary Care Unavailable MASCI, JUAREZ Heredia Referring Unavailable SHAMA FERNANDEZ Primary Care Unavailable GEORGE REINOSO Attending Unavailable MASCI, JUAREZ Heredia Referring Unavailable SHAMA FERNANDEZ Primary Care Unavailable SHAMA FERNANDEZ Primary Care Unavailable JUAREZ BLAIR Referring Unavailable Medications Completed/Discontinued Medications Medication Drug Class(es) Dates Sig (Normalized) Sig (Original) amLODIPine 5 mg oral tablet (20 sources) Dihydropyridine Calcium Channel [place] Start: 03-14-2021 take 2 tablets by mouth twice daily amLODIPine (NORVASC) 5 mg tablet Take 2 tablets by mouth twice daily. 0 03/14/2021 Active Problems Active Problems Problem Classification Problem Date Documented Date Episodic/Chronic Chronic kidney disease (20 sources) Chronic kidney disease stage 3; Translations: [CKD (chronic kidney disease), stage III] Onset: 01-12-2019 01-12-2019 Chronic Coagulation and hemorrhagic disorders (20 sources) Immune thrombocytopenia; Translations: [Immune thrombocytopenic purpura] Onset: 02-14-2007 Chronic Diabetes mellitus without complication (20 sources) Type 2 diabetes mellitus without complication; Translations: [Type 2 diabetes mellitus without complications] Onset: 04-29-2015 04-29-2015 Chronic Disorders of lipid metabolism (20 sources) Hyperlipidemia; Translations: [Hyperlipidemia, unspecified] Onset: 08-02-2013 09-05-2015 Chronic Epilepsy; convulsions (20 sources) Generalized convulsive epilepsy; Translations: [Generalized idiopathic epilepsy and epileptic syndromes, not intractable, without status epilepticus] Onset: 11-13-2005 10-04-2015 Chronic Esophageal disorders (20 sources) Gastroesophageal reflux disease; Translations: [Gastro-esophageal reflux disease without esophagitis] 03-16-2006 Chronic Essential hypertension (20 sources) Hypertensive disorder; Translations: [Essential (primary) hypertension] Onset: 11-01-2009 11-01-2009 Chronic Osteoporosis (20 sources) Osteoporosis; Translations: [Age-related osteoporosis without current pathological fracture] Onset: 08-31-2014 08-31-2014 Chronic Other and unspecified benign neoplasm (2 sources) Polyp of colon; Translations: [Polyp of colon] Onset: 08-01-2018 Episodic Other and unspecified benign neoplasm (20 sources) History of polyp of colon; Translations: [Personal history of colonic polyps] 03-16-2006 Episodic Other nutritional; endocrine; and metabolic disorders (20 sources) Hereditary hemochromatosis; Translations: [Hereditary hemochromatosis] Onset: 10-05-2017 Chronic Other nutritional; endocrine; and metabolic disorders (20 sources) Hypercalcemia; Translations: [Hypercalcemia] Onset: 01-06-2017 01-06-2017 Chronic Other nutritional; endocrine; and metabolic disorders (1 source) Hereditary hemochromatosis; Translations: [Hereditary hemochromatosis (HCC)] Onset: 03-31-2018 Chronic Other nutritional; endocrine; and metabolic disorders (1 source) Hypercalcemia; Translations: [Hypercalcemia] Onset: 01-13-2023 Chronic Spondylosis; intervertebral disc disorders; other back problems (20 sources) Low back pain; Translations: [Lumbago] 03-16-2006 Episodic Viral infection (1 source) COVID-19; Translations: [COVID-19] Onset: 04-07-2021 Past or Other Problems Problem Classification Problem Date Documented Da te Episodic/Chronic Other nervous system disorders (2 sources) Other disturbances of smell and taste; Translations: [Other disturbances of smell and taste] Onset: 04-07-2021 Episodic Other screening for suspected conditions (not mental disorders or infectious disease) (20 sources) Liver function tests abnormal; Translations: [Abnormal results of liver function studies] Onset: 03-18-2007 03-18-2007 Episodic Results Test Name Value Interpretation Reference Range Facil ity Vital Signs Date Time Vital Sign Value Performing Clinician Nataliya sánchez 04-07-2023 09:30-0400 Diastolic blood pressure 71 mm[Hg] Treatment Wstr Work Phone: [facility] 04-07-2023 09:30-0400 Heart rate 74 /min Treatment Wstr Work Phone: [facility] 04-07-2023 09:30-0400 Systolic blood pressure 145 mm[Hg] Treatment Wstr Work Phone: [facility] 01-13-2023 11:17-0400 Diastolic blood pressure 59 mm[Hg] Treatment Wstr Work Phone: [facility] 01-13-2023 11:17-0400 Heart rate 91 /min Treatment Wstr Work Phone: [facility] 01-13-2023 11:17-0400 Systolic blood pressure 139 mm[Hg] Treatment Wstr Work Phone: [facility] 01-13-2023 11:05-0400 Body temperature 97.39 [degF] Treatment Wstr Work Phone: [facility] 01-13-2023 09:55-0400 Body height 160 cm Juarez Masci DO Work Phone: [facility] 01-13-2023 09:55-0400 Body temperature 97.39 [degF] Juarez Masci DO Work Phone: [facility] 01-13-2023 09:55-0400 Body weight 65.09 kg Juarez Masci DO Work Phone: [facility] 01-13-2023 09:55-0400 Diastolic blood pressure 62 mm[Hg] Juarez Masci DO Work Phone: [facility] 01-13-2023 09:55-0400 Heart rate 89 /min Juarez Masci DO Work Phone: [facility] 01-13-2023 09:55-0400 Systolic blood pressure 133 mm[Hg] Juarez Masci DO Work Phone: [facility] 07-29-2022 08:54-0500 Body height 160 cm Juarez Masci DO Work Phone: [facility] 07-29-2022 08:54-0500 Body temperature 97.59 [degF] Juarez Masci DO Work Phone: [facility] 07-29-2022 08:54-0500 Body weight 67.59 kg Juarez Masci DO Work Phone: [facility] 07-29-2022 08:54-0500 Diastolic blood pressure 64 mm[Hg] Juarez Masci DO Work Phone: [facility] 07-29-2022 08:54-0500 Heart rate 96 /min Juarez Masci DO Work Phone: [facility] 07-29-2022 08:54-0500 SaO2% (BldA) [Mass fraction] 98 % Juarez Masci DO Work Phone: [facility] 07-29-2022 08:54-0500 Systolic blood pressure 143 mm[Hg] Juarez Masci DO Work Phone: [facility] 05-05-2022 10:18-0400 Body temperature 97.39 [degF] Treatment Wstr Work Phone: [facility] 05-05-2022 10:18-0400 Diastolic blood pressure 68 mm[Hg] Treatment Wstr Work Phone: [facility] 05-05-2022 10:18-0400 Heart rate 85 /min Treatment Wstr Work Phone: [facility] 05-05-2022 10:18-0400 Systolic blood pressure 157 mm[Hg] Treatment Wstr Work Phone: [facility] 02-11-2022 09:06-0400 Body temperature 98.1 [degF] Juarez Masci DO Work Phone: [facility] 02-11-2022 09:06-0400 Body weight 67.81 kg Juarez Masci DO Work Phone: [facility] 02-11-2022 09:06-0400 Diastolic blood pressure 63 mm[Hg] Juarez Masci DO Work Phone: [facility] 02-11-2022 09:06-0400 Heart rate 81 /min Juarez Masci DO Work Phone: [facility] 02-11-2022 09:06-0400 Systolic blood pressure 142 mm[Hg] Juarez Masci DO Work Phone: [facility] 11-21-2021 14:08-0400 Diastolic blood pressure 62 mm[Hg] Treatment Wstr Work Phone: [facility] 11-21-2021 14:08-0400 Heart rate 93 /min Treatment Wstr Work Phone: [facility] 11-21-2021 14:08-0400 Systolic blood pressure 131 mm[Hg] Treatment Wstr Work Phone: [facility] 11-21-2021 13:50-0400 Body temperature 97.81 [degF] Treatment Wstr Work Phone: [facility] 11-21-2021 13:50-0400 SaO2% (BldA) [Mass fraction] 98 % Treatment Wstr Work Phone: [facility] Encounters Encounter Date Encounter Type Care Provider Facility Start: 06-30-2023 End: 07-01-2023 ambulatory Treatment Rm 11 [facility] Work Phone: Hematology/Oncology Procedures Date Procedure Procedure Detail Performing Clinician Start: 02-05-2020 Mammography Juarez Blair DO Work Phone: Start: 08-01-2018 Colonoscopy Juarez Blair DO Work Phone: Plan of Treatment Date Care Activity Detail Author Start: 06-30-2024 Complete blood count Hemoglobin/Hematocrit [facility] Start: 06-30-2024 Creatinine measurement Serum Creatinine [facility] Start: 04-07-2024 Hemoglobin/Hematocrit Hemoglobin/Hematocrit [facility] Start: 04-07-2024 Serum Creatinine Serum Creatinine [facility] Start: 01-14-2024 SERUM CREATININE SERUM CREATININE [facility] Start: 10-22-2023 SERUM CREATININE SERUM CREATININE [facility] Start: 08-01-2023 Colonoscopy COLONOSCOPY [facility] Start: 08-01-2023 COLORECTAL CANCER SCREENING COLORECTAL CANCER SCREENING [facility] Start: 08-01-2023 Screening for malignant neoplasm of colon [facility] Start: 07-29-2023 SERUM CREATININE SERUM CREATININE [facility] Start: 05-05-2023 SERUM CREATININE SERUM CREATININE [facility] Start: 03-19-2023 Covid-19 Vaccine ( season) Covid-19 Vaccine () [facility] Start: 03-19-2023 Influenza vaccination Influenza Vaccine (#1) [facility] Start: 02-11-2023 SERUM CREATININE SERUM CREATININE [facility] Start: 01-13-2023 End: 03-15-2023 [id number] [Mass/volume] in Serum or Plasma ALPHA FETOPROTEIN BL Lab Routine Immune thrombocytopenic purpura (HCC) Hereditary hemochromatosis (HCC) Expected: 01/13/2023, Expires: 03/15/2023 [facility] Work Phone: Immunizations Immunization Date Immunization Notes Care Provider Fa cility 07-18-2022 influenza virus vaccine, unspecified formulation Juarez Masci DO Work Phone: [facility] 10-04-2020 COVID-19 vaccine, ag e 12+ yr (PFIZER-BIONTECH - PURPLE TOP) Juarez Blair DO Work Phone: [facility] 09-13-2020 COVID-19 vaccine, ag e 12+ yr (PFIZER-BIONTECH - PURPLE TOP) Juarez Blair DO Work Phone: [facility] 04-27-2019 influenza, seasonal, injectable Juarez Bliar DO Work Phone: [facility] 05-20-2017 influenza, injectabl e, quadrivalent, contains preservative Juarez Blair DO Work Phone: [facility] 03-14-2010 tetanus toxoid, redu melvin diphtheria toxoid, and acellular pertussis vaccine, adsorbed Juarez Blair DO Work Phone: [facility] Work Phone: 06-25-2008 influenza virus vaccine, unspecified formulation Juarez Blair DO Work Phone: [facility] Work Phone: 01-06-2000 diphtheria and tetan us toxoids, adsorbed for pediatric use Juarez Blair DO Work Phone: [facility] Payers Date Payer Category Payer Unknown [employer] DICARE SUPPLEMENT [id number] 2019-Present [phone] [id number] [place] [address] Indemnity [id number] 2019 Unknown [id number] 2019 Unknown [employer] DICARE SUPPLEMENT [id number] 2019-Present [phone] [address] Indemnity [id number] 2019 Medicare MEDICARE MEDICAR E A AND B [id number] 2019-Present [phone] [place] [address] Medicare [id number] 2019 Medicare [id number] 2019 Medicare MEDICARE MEDICAR E A AND B [id number] 2019-Present [phone] [place] [address] Medicare [id number] 2017 Self-pay 2017 Unknown [id number] 1955 Unknown [id number] 1955 Unknown [id number] 1954 Unknown [id number] 1954 Unknown [id number] 1955 Unknown [id number] 1 Social History Date Type Detail Facility Start: 12-28-2012 [facility] End: 12-28-1989 History of tobacco use Current smoker [facility] End: 12-28-1989 History of tobacco use Cigarette Smoker [facility] Start: 12-28-2012 Tobacco use and exposure Smoke less tobacco non-user [facility] History of tobacco use Snuff User [facility] Start: 03-14-2021 End: 06-30-2023 Alcohol intake Current non-drinker of alcohol (finding) [facility] Start: 01-13-2020 End: 06-21-2020 History SDOH Alcohol Frequency 1 [facility] Start: 06-21-2020 History SDOH Alcohol Std Drinks 98 [facility] Start: 01-13-2020 History SDOH Social Connections Phone 5 [facility] Start: 01-13-2020 History SDOH Social Connections Get Together 3 [facility] Start: 01-13-2020 History SDOH Social Connections Membership 2 [facility] Start: 01-12-2020 Education 17 [facility] Start: 12-28-2012 Tobacco Comment Pt smoked 1/2 pack a week x 3-4 years. [facility] Start: 1955 Sex Assigned At Not on file [facility] Start: 11-11-2021 End: 11-21-2021 Exposure to SARS-CoV-2 (event) Not sure [facility] Start: 1955 Sex Assigned At Female [facility] Start: 01-13-2023 End: 06-30-2023 History of Social function [facility] Start: 01-13-2023 End: 06-30-2023 Tobacco use panel [facility] Adult Depression Screening Assessment 0 [facility] Start: 02-08-2022 Gender identity Identifies as female gender (finding) [facility] Start: 02-08-2022 Sexual orientation Heterosexual (fin ding) [facility] Medical Equipment Procedure Code Equipment Code Equipment Origin al Text Equipment Identifier Dates Test blood sugar (s) 1 times daily. Dx: Type 2 DM - Uncontrolled E11.65 Insulin: No (True Metrix) Start: 03-21-2019 Clinical Notes 04-16-2016 to 06-30-2023 Telephone Encounter - Melissa Adams LISW - 05/10/2023 3:28 PM EDTTelephone Encounter - Sophie De Leon LPN - 04/09/2023 8:43 AM EDTTelephone Encounter - Juarez Blair DO - 04/08/2023 5:09 PM EDT Note Date & Type Note Facility 06-30-2023 Note HNO ID: [id number] Author: George Reinoso Service: ? Author Type: Nurse Practitioner Type: Progress Notes Filed: 07/02/2023 10:57 AM Note Text: Jarrod Richardson 1955 06/30/2023 Diagnosis: 1) ITP. 2) Hereditary hemochromatosis. HPI: The patient is a 67-year-old female who was first diagnosed with ITP in 1991 after presenting with petechiae. Initial plt count was 6K. Responded well to a course of steroids. She required another course of steroids in or around 2008. She also has a remote history of seizure disorder and has been on various antiseizure medications over the years. Previous therapy: 1) Prednisone. 2) Nplate. Current therapy: 1) Promacta. 2) Phlebotomy started 10/21/2017. Was seen at [facility] for second opinion regarding ITP and comprehensive lab work was performed. She had a ferritin over 200,000. Subsequent hemochromatosis testing revealed homozygous mutation of C282Y. Presents for ongoing hematologic management. Interim history: Ms. Richardson presents today for lab check and possible phlebotomy. She reports feeling well. Denies new issues. No recent illnesses, hospitalizations or ED visits. States she feels pretty good. No fevers, chills, NS. Energy is stable, eating and drinking well. Denies SOB, CP, palpitations, MARRERO, or dizziness. No changes in bowel or bladder habits. Denies new aches, pains, lump, bumps or edema. No N/T, skin changes. No rash or itching. She continues to tolerate Promacta well without any symptomatic side effect. No unusual bleeding or unexplained bruising. Tolerating phlebotomies, states they make her fairly tired. Reviewed labs with her today. Ferritin remains less than 20. HCT 36.5. Pt defers phelbo today. Going home to finish her baking. No seizures. PMH, medications and allergies personally reviewed by me today. Any changes documented in appropriate section. ROS: All systems reviewed on 06/30/2023 with pertinent positives and negatives as outlined in the interval history. PHYSICAL EXAM: Vitals: Blood pressure 169/72, pulse 94, temperature 36.8 ?C (98.3 ?F), height 160 cm (5' 2.99 ), weight 65.3 kg (144 lb), SpO2 99%. Well-appearing and in no acute distress. EYES: Sclerae are anicteric bilaterally. NECK: Supple. LYMPHATIC: There is no palpable cervical, supraclavicular or axillary adenopathy. RESPIRATORY: Inspiratory breath sounds are of normal intensity in all mcneal. No rales, wheezes or rhonchi. CARDIOVASCULAR: Rhythm is regular. ABDOMEN: The abdomen is nondistended. No organomegaly. No tenderness. Extremities: No swelling or edema. SKIN: No jaundice or rash. No petechiae. NEUROLOGIC: construction director II-XII are grossly intact. No focal motor weakness. I have performed the physical exam today (06/30/2023) and have edited the note to correlate with current findings. LABS: Latest Reference Range AND Units 01/13/23 09:44 04/07/23 08:52 06/30/23 08:51 WBC 3.70 - 11.00 k/uL 5.42 4.84 5.08 RBC 3.90 - 5.20 m/uL 4.11 4.08 4.03 Hemoglobin 11.5 - 15.5 g/dL 12.6 12.1 11.5 Hematocrit 36.0 - 46.0 % 38.2 37.6 36.5 Platelet Count 150 - 400 k/uL 247 208 228 MCV 80.0 - 100.0 fL 92.9 92.2 90.6 MCH 26.0 - 34.0 pg 30.7 29.7 28.5 MCHC 30.5 - 36.0 g/dL 33.0 32.2 31.5 MPV 9.0 - 12.7 fL 9.9 9.1 9.4 RDW-CV 11.5 - 15.0 % 14.0 13.6 14.1 DTYPE Auto Auto Auto Neut% % 66.9 62.6 67.9 Abs Neut (ANC) 1.45 - 7.50 k/uL 3.63 3.03 3.45 Lymph% % 19.2 22.7 16.3 Abs Lymph 1.00 - 4.00 k/uL 1.04 1.10 0.83 (L) [place]% % 7.0 8.5 8.9 Abs [place] <0.87 k/uL 0.38 0.41 0.45 Eosin% % 5.4 5.2 5.5 Abs Eosin <0.46 k/uL 0.29 0.25 0.28 Baso% % 1.1 0.8 0.8 Abs Baso <0.11 k/uL 0.06 0.04 0.04 Immature Gran % % 0.4 0.2 0.6 IMMATURE GRANS (ABS) <0.10 k/uL <0.03 <0.03 0.03 NRBC /100 WBC 0.0 0.0 0.0 Absolute nRBC <0.01 k/uL <0.01 <0.01 <0.01 (L): Data is abnormally low Latest Reference Range AND Units 10/21/22 08:54 01/13/23 09:44 04/07/23 08:52 06/30/23 08:51 Ferritin 14.7 - 205.1 ng/mL 23.3 24.7 18.1 18.9 ASSESSMENT/PLAN: (D69.3) Immune thrombocytopenic purpura (HCC) (primary encounter diagnosis) Assessment: -Chronic relapsing ITP. -Has not had splenectomy. -Tolerating Promacta well with great response. -Reviewed labs. -Nothing on CBC to suggest marrow fibrosis. Plan: -Continue Promacta. -Labs every 3 months. (E83.110) Hereditary hemochromatosis (HCC) Assessment -Incidental diagnosis. -Baseline AFP <3 ng/ml 10/05/3017. -Ferritin continues to trend lower, pending today. 18.1 on 04/07/2023 -Tolerating phlebotomy well overall. Plan: -Hold phlebotomy today per her preference. -Phlebotomy with aim of ferritin <50 ng/ml. -Annual AFP, remains stable Continue with Q3 month labs. OV with possible phelbo in 3 months. George Reinoso APRN.IRONWORKER Portions of this note including HPI, ROS, impression/plan may have been copied forward as to provide important historical information essential in contributing to medical decisio (more content not included)... [facility] 05-10-2023 Miscellaneous Notes SOCIAL WORK FOLLOW UP NOTE: [facility] Date of service: May 10, 2023 Jarrod Richardson is being seen for a follow up social work visit. Today's visit includes: patient TOPICS ADDRESSED: SW received call from pt this date inquiring about renewing her Promacta assistance through [employer] patient assistance. SW prepped pt's renewal application and called pt to inform her she would need to come in and sign as well as provide a copy of her 2021 1039 form for her renewal. Pt verbalized understanding and reports she will be in. SW to have physician review and sign and will update this note once application as been signed and faxed. PLAN: Assist with financial support applications and Continue follow up as needed F/U APPOINTMENT: PRN Assigned SW listed in Care Team tab: Yes PAULA SandovalS documented in this encounter [facility] 04-09-2023 Miscellaneous Notes Pt notified and voices understanding Sophie De Leon LPN Can let her know recent lab work showed her kidney function was a little off and it seems to be due to mild dehydration. Encourage liberal hydration. Juarez Blair DO documented in this encounter [facility] 01-13-2023 Note HNO ID: [id number] Author: Juarez Blair DO Service: ? Author Type: Physician Type: Progress Notes Filed: 01/13/2023 11:09 AM Note Text: Diagnosis: 1) ITP. 2) Hereditary hemochromatosis. HPI: The patient is a 67-year-old female who was first diagnosed with ITP in 1991 after presenting with petechiae. Initial plt count was 6K. Responded well to a course of steroids. She required another course of steroids in or around 2008. She also has a remote history of seizure disorder and has been on various antiseizure medications over the years. Previous therapy: 1) Prednisone. 2) Nplate. Current therapy: 1) Promacta. 2) Phlebotomy started 10/21/2017. Was seen at [facility] for second opinion regarding ITP and comprehensive lab work was performed. She had a ferritin over 200,000. Subsequent hemochromatosis testing revealed homozygous mutation of C282Y. Presents for ongoing hematologic management. Interim history: She continues to tolerate Promacta well without any symptomatic side effect. No unusual bleeding or unexplained bruising. Tolerating phlebotomy well although occasionally needs some hydration. No seizures. PMH, medications and allergies personally reviewed by me today. Any changes documented in appropriate section. ROS: Constitutional: Denies episodes of fever and night sweats. Neuro: Denies MARRERO, vertigo and imbalance. No symptoms of neuropathy. HEENT: No recent change in voice, vision or hearing. Resp: Denies cough, wheeze and hemoptysis. No shortness of breath at rest. No MERINO. CVS: Denies exertional chest pain, PND, orthopnea and LE edema. GI: Denies reflux, n/v, change in bowel habits and abdominal pain. No symptoms of stomatitis. : No dysuria or gross hematuria. No symptoms of bladder outlet obstruction. Endo: No hot flashes. Derm: No rash. Heme: See above. Psych: Normal mood. PHYSICAL EXAM: Vitals: Blood pressure 133/62, pulse 89, temperature 36.3 ?C (97.4 ?F), temperature source Temporal, height 160 cm (5' 3 ), weight 65.1 kg (143 lb 8 oz). Well-appearing and in no acute distress. EYES: Sclerae are anicteric bilaterally. NECK: Supple. LYMPHATIC: There is no palpable cervical, supraclavicular or axillary adenopathy. RESPIRATORY: Inspiratory breath sounds are of normal intensity in all mcneal. No rales, wheezes or rhonchi. CARDIOVASCULAR: Rhythm is regular. ABDOMEN: The abdomen is nondistended. No organomegaly. No tenderness. Extremities: No swelling or edema. SKIN: No jaundice or rash. No petechiae. NEUROLOGIC: construction director II-XII are grossly intact. No focal motor weakness. LABS: Component Latest Ref Rng AND Units 07/29/2022 10/21/2022 01/13/2023 WBC 3.70 - 11.00 k/uL 5.45 4.45 5.42 RBC 3.90 - 5.20 m/uL 4.06 3.94 4.11 Hemoglobin 11.5 - 15.5 g/dL 11.4 (L) 11.8 12.6 Hematocrit 36.0 - 46.0 % 35.9 (L) 35.7 (L) 38.2 MCV 80.0 - 100.0 fL 88.4 90.6 92.9 MCH 26.0 - 34.0 pg 28.1 29.9 30.7 MCHC 30.5 - 36.0 g/dL 31.8 33.1 33.0 RDW-CV 11.5 - 15.0 % 14.4 14.8 14.0 Platelet Count 150 - 400 k/uL 271 223 247 MPV 9.0 - 12.7 fL 10.2 10.2 9.9 Neut% % 64.3 65.0 66.9 Abs Neut (ANC) 1.45 - 7.50 k/uL 3.50 2.89 3.63 Lymph% % 23.1 21.8 19.2 Abs Lymph 1.00 - 4.00 k/uL 1.26 0.97 (L) 1.04 [place]% % 6.4 6.3 7.0 Abs [place] <0.87 k/uL 0.35 0.28 0.38 Eosin% % 5.3 5.8 5.4 Abs Eosin <0.46 k/uL 0.29 0.26 0.29 Baso% % 0.7 0.9 1.1 Abs Baso <0.11 k/uL 0.04 0.04 0.06 Immature Gran % % 0.2 0.2 0.4 IMMATURE GRANS (ABS) <0.10 k/uL <0.03 <0.03 <0.03 NRBC /100 WBC 0.0 0.0 0.0 Absolute nRBC <0.01 k/uL <0.01 <0.01 <0.01 DTYPE Auto Auto Auto Protein, Total 6.3 - 8.0 g/dL 7.2 7.0 7.2 Albumin 3.9 - 4.9 g/dL 4.8 4.7 4.8 Calcium 8.5 - 10.2 mg/dL 10.2 10.1 10.6 (H) Bilirubin, Total 0.2 - 1.3 mg/dL 0.4 0.4 0.4 Alkaline Phosphatase 34 - 123 U/L 50 32 (L) 41 AST 13 - 35 U/L 16 21 19 ALT 7 - 38 U/L 11 14 14 Glucose 74 - 99 mg/dL 160 (H) 251 (H) 262 (H) BUN 7 - 21 mg/dL 18 21 24 (H) Creatinine 0.58 - 0.96 mg/dL 0.85 0.89 0.98 (H) Sodium 136 - 144 mmol/L 138 137 136 Potassium 3.7 - 5.1 mmol/L 4.4 4.5 4.6 Chloride 97 - 105 mmol/L 102 101 100 CO2 22 - 30 mmol/L 26 24 24 Anion Gap 9 - 18 mmol/L 10 12 12 eGFR >=60 mL/min/1.73mA? 75 71 63 AFP <11.0 ng/mL <3.0 Ferritin 14.7 - 205.1 ng/mL 23.8 23.3 ASSESSMENT/PLAN: (D69.3) Immune thrombocytopenic purpura (HCC) (primary encounter diagnosis) Assessment: -Chronic relapsing ITP. -Has not had splenectomy. -Tolerating Promacta well with great response. -Reviewed labs. -Nothing on CBC to suggest marrow fibrosis. Plan: -Continue Promacta. -Labs every 3 months. (E83.110) Hereditary hemochromatosis (HCC) Assessment -Incidental diagnosis. -Baseline AFP <3 ng/ml 10/05/3017. -Ferritin continues to trend lower. -Tolerating phlebotomy well overall. Plan: -Hold phlebotomy today per her preference. -Phlebotomy with aim of ferritin <50 ng/ml. -Annual AFP. Portions of this documentation were copie (more content not included)... [facility] 01-13-2023 History of Presen t illness Narrative Diagnosis: 1) ITP. 2) Hereditary hemochromatosis. HPI: The patient is a 67-year-old female who was first diagnosed with ITP in 1991 after presenting with petechiae. Initial plt count was 6K. Responded well to a course of steroids. She required another course of steroids in or around 2008. She also has a remote history of seizure disorder and has been on various antiseizure medications over the years. Previous therapy: 1) Prednisone. 2) Nplate. Current therapy: 1) Promacta. 2) Phlebotomy started 10/21/2017. Was seen at [facility] for second opinion regarding ITP and comprehensive lab work was performed. She had a ferritin over 200,000. Subsequent hemochromatosis testing revealed homozygous mutation of C282Y. Presents for ongoing hematologic management. Interim history: She continues to tolerate Promacta well without any symptomatic side effect. No unusual bleeding or unexplained bruising. Tolerating phlebotomy well although occasionally needs some hydration. No seizures. PMH, medications and allergies personally reviewed by me today. Any changes documented in appropriate section. ROS: Constitutional: Denies episodes of fever and night sweats. Neuro: Denies MARRERO, vertigo and imbalance. No symptoms of neuropathy. HEENT: No recent change in voice, vision or hearing. Resp: Denies cough, wheeze and hemoptysis. No shortness of breath at rest. No MERINO. CVS: Denies exertional chest pain, PND, orthopnea and LE edema. GI: Denies reflux, n/v, change in bowel habits and abdominal pain. No symptoms of stomatitis. : No dysuria or gross hematuria. No symptoms of bladder outlet obstruction. Endo: No hot flashes. Derm: No rash. Heme: See above. Psych: Normal mood. PHYSICAL EXAM: Vitals: Blood pressure 133/62, pulse 89, temperature 36.3 C (97.4 F), temperature source Temporal, height 160 cm (5' 3 ), weight 65.1 kg (143 lb 8 oz). Well-appearing and in no acute distress. EYES: Sclerae are anicteric bilaterally. NECK: Supple. LYMPHATIC: There is no palpable cervical, supraclavicular or axillary adenopathy. RESPIRATORY: Inspiratory breath sounds are of normal intensity in all mcenal. No rales, wheezes or rhonchi. CARDIOVASCULAR: Rhythm is regular. ABDOMEN: The abdomen is nondistended. No organomegaly. No tenderness. Extremities: No swelling or edema. SKIN: No jaundice or rash. No petechiae. NEUROLOGIC: construction director II-XII are grossly intact. No focal motor weakness. LABS: Component Latest Ref Rng & Units 07/29/2022 10/21/2022 01/13/2023 WBC 3.70 - 11.00 k/uL 5.45 4.45 5.42 RBC 3.90 - 5.20 m/uL 4.06 3.94 4.11 Hemoglobin 11.5 - 15.5 g/dL 11.4 (L) 11.8 12.6 Hematocrit 36.0 - 46.0 % 35.9 (L) 35.7 (L) 38.2 MCV 80.0 - 100.0 fL 88.4 90.6 92.9 MCH 26.0 - 34.0 pg 28.1 29.9 30.7 MCHC 30.5 - 36.0 g/dL 31.8 33.1 33.0 RDW-CV 11.5 - 15.0 % 14.4 14.8 14.0 Platelet Count 150 - 400 k/uL 271 223 247 MPV 9.0 - 12.7 fL 10.2 10.2 9.9 Neut% % 64.3 65.0 66.9 Abs Neut (ANC) 1.45 - 7.50 k/uL 3.50 2.89 3.63 Lymph% % 23.1 21.8 19.2 Abs Lymph 1.00 - 4.00 k/uL 1.26 0.97 (L) 1.04 [place]% % 6.4 6.3 7.0 Abs [place] <0.87 k/uL 0.35 0.28 0.38 Eosin% % 5.3 5.8 5.4 Abs Eosin <0.46 k/uL 0.29 0.26 0.29 Baso% % 0.7 0.9 1.1 Abs Baso <0.11 k/uL 0.04 0.04 0.06 Immature Gran % % 0.2 0.2 0.4 IMMATURE GRANS (ABS) <0.10 k/uL <0.03 <0.03 <0.03 NRBC /100 WBC 0.0 0.0 0.0 Absolute nRBC <0.01 k/uL <0.01 <0.01 <0.01 DTYPE Auto Auto Auto Protein, Total 6.3 - 8.0 g/dL 7.2 7.0 7.2 Albumin 3.9 - 4.9 g/dL 4.8 4.7 4.8 Calcium 8.5 - 10.2 mg/dL 10.2 10.1 10.6 (H) Bilirubin, Total 0.2 - 1.3 mg/dL 0.4 0.4 0.4 Alkaline Phosphatase 34 - 123 U/L 50 32 (L) 41 AST 13 - 35 U/L 16 21 19 ALT 7 - 38 U/L 11 14 14 Glucose 74 - 99 mg/dL 160 (H) 251 (H) 262 (H) BUN 7 - 21 mg/dL 18 21 24 (H) Creatinine 0.58 - 0.96 mg/dL 0.85 0.89 0.98 (H) Sodium 136 - 144 mmol/L 138 137 136 Potassium 3.7 - 5.1 mmol/L 4.4 4.5 4.6 Chloride 97 - 105 mmol/L 102 101 100 CO2 22 - 30 mmol/L 26 24 24 Anion Gap 9 - 18 mmol/L 10 12 12 eGFR >=60 mL/min/1.73m 75 71 63 AFP <11.0 ng/mL <3.0 Ferritin 14.7 - 205.1 ng/mL 23.8 23.3 ASSESSMENT/PLAN: (D69.3) Immune thrombocytopenic purpura (HCC) (primary encounter diagnosis) Assessment: -Chronic relapsing ITP. -Has not had splenectomy. -Tolerating Promacta well with great response. -Reviewed labs. -Nothing on CBC to suggest marrow fibrosis. Plan: -Continue Promacta. -Labs every 3 months. (E83.110) Hereditary hemochromatosis (HCC) Assessment -Incidental diagnosis. -Baseline AFP <3 ng/ml 10/05/3017. -Ferritin continues to trend lower. -Tolerating phlebotomy well overall. Plan: -Hold phlebotomy today per her preference. -Phlebotomy with aim of ferritin <50 ng/ml. -Annual AFP. Portions of this documentation were copied and pasted from previous office visit notes in order to provide a cohesive continuity of the history. The note has been reviewed and edited and updated as necessary. I spent a total of 20 minutes on the date of the service which included preparing to see the patient, [id number] patient care, completing clinical documentation, obtaining and/or reviewing separately obtained history, performing a medically appropriate examination, counseling and educating the patient/family/caregiver, ordering medications, tests, or procedures, communicating with other HCPs (not separately reported), and communicating results to the patient/family/caregiver. Juarez Blair DO documented in this encounter [facility] 10-21-2022 Nurse Note Treatment parameters not met documented in this encounter [facility] 07-29-2022 Note HNO ID: [id number] Author: Juarez Blair DO Service: ? Author Type: Physician Type: Progress Notes Filed: 07/29/2022 9:24 AM Note Text: Diagnosis: 1) ITP. 2) Hereditary hemochromatosis. HPI: The patient is a 67-year-old female who was first diagnosed with ITP in 1991 after presenting with petechiae. Initial plt count was 6K. Responded well to a course of steroids. She required another course of steroids in or around 2008. She also has a remote history of seizure disorder and has been on various antiseizure medications over the years. Previous therapy: 1) Prednisone. 2) Nplate. Current therapy: 1) Promacta. 2) Phlebotomy started 10/21/2017. Was seen at [facility] for second opinion regarding ITP and comprehensive lab work was performed. She had a ferritin over 200,000. Subsequent hemochromatosis testing revealed homozygous mutation of C282Y. Presents for ongoing hematologic management. Interim history: She continues to tolerate Promacta well without any symptomatic side effect. No unusual bleeding or unexplained bruising. Undergoing evaluation for possible phlebotomy every 3 months. She has been tolerating them well although occasionally needs some hydration at the time of phlebotomy. No seizures. PMH, medications and allergies personally reviewed by me today. Any changes documented in appropriate section. ROS: Constitutional: Denies episodes of fever and night sweats. Neuro: Denies MARRERO, vertigo and imbalance. No symptoms of neuropathy. HEENT: No recent change in voice, vision or hearing. Resp: Denies cough, wheeze and hemoptysis. No shortness of breath at rest. No MERINO. CVS: Denies exertional chest pain, PND, orthopnea and LE edema. GI: Denies reflux, n/v, change in bowel habits and abdominal pain. No symptoms of stomatitis. : No dysuria or gross hematuria. No symptoms of bladder outlet obstruction. Endo: No hot flashes. Derm: No rash. Heme: See above. Psych: Normal mood. PHYSICAL EXAM: Vitals: Blood pressure 143/64, pulse 96, temperature 36.4 ?C (97.6 ?F), height 160 cm (5' 2.99 ), weight 67.6 kg (149 lb), SpO2 98 %. Well-appearing and in no acute distress. EYES: Sclerae are anicteric bilaterally. NECK: Supple. LYMPHATIC: There is no palpable cervical, supraclavicular or axillary adenopathy. RESPIRATORY: Inspiratory breath sounds are of normal intensity in all mcneal. No rales, wheezes or rhonchi. CARDIOVASCULAR: Rhythm is regular. ABDOMEN: The abdomen is nondistended. No organomegaly. No tenderness. Extremities: No swelling or edema. SKIN: No jaundice or rash. No petechiae. NEUROLOGIC: construction director II-XII are grossly intact. No focal motor weakness. LABS: Component Latest Ref Rng AND Units 02/11/2022 05/05/2022 07/29/2022 WBC 3.70 - 11.00 k/uL 5.15 5.19 5.45 RBC 3.90 - 5.20 m/uL 4.07 4.18 4.06 Hemoglobin 11.5 - 15.5 g/dL 11.1 (L) 12.1 11.4 (L) Hematocrit 36.0 - 46.0 % 35.3 (L) 37.2 35.9 (L) MCV 80.0 - 100.0 fL 86.7 89.0 88.4 MCH 26.0 - 34.0 pg 27.3 28.9 28.1 MCHC 30.5 - 36.0 g/dL 31.4 32.5 31.8 RDW-CV 11.5 - 15.0 % 15.3 (H) 15.5 (H) 14.4 Platelet Count 150 - 400 k/uL 219 219 271 MPV 9.0 - 12.7 fL 10.1 10.3 10.2 Neut% % 65.8 65.4 64.3 Abs Neut (ANC) 1.45 - 7.50 k/uL 3.39 3.40 3.50 Lymph% % 19.8 18.5 23.1 Abs Lymph 1.00 - 4.00 k/uL 1.02 0.96 (L) 1.26 [place]% % 8.3 8.7 6.4 Abs [place] <0.87 k/uL 0.43 0.45 0.35 Eosin% % 4.7 6.2 5.3 Abs Eosin <0.46 k/uL 0.24 0.32 0.29 Baso% % 1.0 0.8 0.7 Abs Baso <0.11 k/uL 0.05 0.04 0.04 Immature Gran % % 0.4 0.4 0.2 IMMATURE GRANS (ABS) <0.10 k/uL <0.03 <0.03 <0.03 NRBC /100 WBC 0.0 0.0 0.0 Absolute nRBC <0.01 k/uL <0.01 <0.01 <0.01 DTYPE Auto Auto Auto Protein, Total 6.3 - 8.0 g/dL 7.7 Albumin 3.9 - 4.9 g/dL 4.9 Calcium 8.5 - 10.2 mg/dL 10.4 (H) Bilirubin, Total 0.2 - 1.3 mg/dL 0.5 Alkaline Phosphatase 34 - 123 U/L 48 AST 13 - 35 U/L 20 ALT 7 - 38 U/L 12 Glucose 74 - 99 mg/dL 143 (H) BUN 7 - 21 mg/dL 18 Creatinine 0.58 - 0.96 mg/dL 0.88 Sodium 136 - 144 mmol/L 137 Potassium 3.7 - 5.1 mmol/L 4.1 Chloride 97 - 105 mmol/L 100 CO2 22 - 30 mmol/L 23 Anion Gap 9 - 18 mmol/L 14 eGFR >=60 mL/min/1.73mA? 72 AFP <11.0 ng/mL <3.0 Ferritin 14.7 - 205.1 ng/mL 18.5 20.0 ASSESSMENT/PLAN: (D69.3) Immune thrombocytopenic purpura (HCC) (primary encounter diagnosis) Assessment: -Chronic relapsing ITP. -Has not had splenectomy. -Tolerating Promacta well with great response. -Reviewed labs. Plan: -Continue Promacta. -Labs every 3 months. (E83.110) Hereditary hemochromatosis (HCC) Assessment -Incidental diagnosis. -Baseline AFP <3 ng/ml 10/05/3017. -Ferritin continues to trend lower. -Tolerating phlebotomy well overall. Plan: -Hold phlebotomy today per her preference. -Phlebotomy with aim of ferritin <50 ng/ml. -Annual AFP. Portions of this documentation were copied and pasted from previous office visit notes in order to provide a cohesive continuity of the (more content not included)... [facility] 07-29-2022 History of Presen t illness Narrative Diagnosis: 1) ITP. 2) Hereditary hemochromatosis. HPI: The patient is a 67-year-old female who was first diagnosed with ITP in 1991 after presenting with petechiae. Initial plt count was 6K. Responded well to a course of steroids. She required another course of steroids in or around 2008. She also has a remote history of seizure disorder and has been on various antiseizure medications over the years. Previous therapy: 1) Prednisone. 2) Nplate. Current therapy: 1) Promacta. 2) Phlebotomy started 10/21/2017. Was seen at [facility] for second opinion regarding ITP and comprehensive lab work was performed. She had a ferritin over 200,000. Subsequent hemochromatosis testing revealed homozygous mutation of C282Y. Presents for ongoing hematologic management. Interim history: She continues to tolerate Promacta well without any symptomatic side effect. No unusual bleeding or unexplained bruising. Undergoing evaluation for possible phlebotomy every 3 months. She has been tolerating them well although occasionally needs some hydration at the time of phlebotomy. No seizures. PMH, medications and allergies personally reviewed by me today. Any changes documented in appropriate section. ROS: Constitutional: Denies episodes of fever and night sweats. Neuro: Denies MARRERO, vertigo and imbalance. No symptoms of neuropathy. HEENT: No recent change in voice, vision or hearing. Resp: Denies cough, wheeze and hemoptysis. No shortness of breath at rest. No MERINO. CVS: Denies exertional chest pain, PND, orthopnea and LE edema. GI: Denies reflux, n/v, change in bowel habits and abdominal pain. No symptoms of stomatitis. : No dysuria or gross hematuria. No symptoms of bladder outlet obstruction. Endo: No hot flashes. Derm: No rash. Heme: See above. Psych: Normal mood. PHYSICAL EXAM: Vitals: Blood pressure 143/64, pulse 96, temperature 36.4 C (97.6 F), height 160 cm (5' 2.99 ), weight 67.6 kg (149 lb), SpO2 98 %. Well-appearing and in no acute distress. EYES: Sclerae are anicteric bilaterally. NECK: Supple. LYMPHATIC: There is no palpable cervical, supraclavicular or axillary adenopathy. RESPIRATORY: Inspiratory breath sounds are of normal intensity in all mcneal. No rales, wheezes or rhonchi. CARDIOVASCULAR: Rhythm is regular. ABDOMEN: The abdomen is nondistended. No organomegaly. No tenderness. Extremities: No swelling or edema. SKIN: No jaundice or rash. No petechiae. NEUROLOGIC: construction director II-XII are grossly intact. No focal motor weakness. LABS: Component Latest Ref Rng & Units 02/11/2022 05/05/2022 07/29/2022 WBC 3.70 - 11.00 k/uL 5.15 5.19 5.45 RBC 3.90 - 5.20 m/uL 4.07 4.18 4.06 Hemoglobin 11.5 - 15.5 g/dL 11.1 (L) 12.1 11.4 (L) Hematocrit 36.0 - 46.0 % 35.3 (L) 37.2 35.9 (L) MCV 80.0 - 100.0 fL 86.7 89.0 88.4 MCH 26.0 - 34.0 pg 27.3 28.9 28.1 MCHC 30.5 - 36.0 g/dL 31.4 32.5 31.8 RDW-CV 11.5 - 15.0 % 15.3 (H) 15.5 (H) 14.4 Platelet Count 150 - 400 k/uL 219 219 271 MPV 9.0 - 12.7 fL 10.1 10.3 10.2 Neut% % 65.8 65.4 64.3 Abs Neut (ANC) 1.45 - 7.50 k/uL 3.39 3.40 3.50 Lymph% % 19.8 18.5 23.1 Abs Lymph 1.00 - 4.00 k/uL 1.02 0.96 (L) 1.26 [place]% % 8.3 8.7 6.4 Abs [place] <0.87 k/uL 0.43 0.45 0.35 Eosin% % 4.7 6.2 5.3 Abs Eosin <0.46 k/uL 0.24 0.32 0.29 Baso% % 1.0 0.8 0.7 Abs Baso <0.11 k/uL 0.05 0.04 0.04 Immature Gran % % 0.4 0.4 0.2 IMMATURE GRANS (ABS) <0.10 k/uL <0.03 <0.03 <0.03 NRBC /100 WBC 0.0 0.0 0.0 Absolute nRBC <0.01 k/uL <0.01 <0.01 <0.01 DTYPE Auto Auto Auto Protein, Total 6.3 - 8.0 g/dL 7.7 Albumin 3.9 - 4.9 g/dL 4.9 Calcium 8.5 - 10.2 mg/dL 10.4 (H) Bilirubin, Total 0.2 - 1.3 mg/dL 0.5 Alkaline Phosphatase 34 - 123 U/L 48 AST 13 - 35 U/L 20 ALT 7 - 38 U/L 12 Glucose 74 - 99 mg/dL 143 (H) BUN 7 - 21 mg/dL 18 Creatinine 0.58 - 0.96 mg/dL 0.88 Sodium 136 - 144 mmol/L 137 Potassium 3.7 - 5.1 mmol/L 4.1 Chloride 97 - 105 mmol/L 100 CO2 22 - 30 mmol/L 23 Anion Gap 9 - 18 mmol/L 14 eGFR >=60 mL/min/1.73m 72 AFP <11.0 ng/mL <3.0 Ferritin 14.7 - 205.1 ng/mL 18.5 20.0 ASSESSMENT/PLAN: (D69.3) Immune thrombocytopenic purpura (HCC) (primary encounter diagnosis) Assessment: -Chronic relapsing ITP. -Has not had splenectomy. -Tolerating Promacta well with great response. -Reviewed labs. Plan: -Continue Promacta. -Labs every 3 months. (E83.110) Hereditary hemochromatosis (HCC) Assessment -Incidental diagnosis. -Baseline AFP <3 ng/ml 10/05/3017. -Ferritin continues to trend lower. -Tolerating phlebotomy well overall. Plan: -Hold phlebotomy today per her preference. -Phlebotomy with aim of ferritin <50 ng/ml. -Annual AFP. Portions of this documentation were copied and pasted from previous office visit notes in order to provide a cohesive continuity of the history. The note has been reviewed and edited and updated as necessary. During this patient visit I have spent approximately 10 minutes out of 20 in counseling regarding treatment options, medications and test results and coordinating care. Juarez Blair DO documented in this encounter [facility] 06-01-2022 Miscellaneous Notes Rx printed. Juarez Blair DO SW completing pt's 2022 med assist re-enrollment for Promacta through [employer]. Pt is in need of a new hard-copy prescription of her Promacta to send along with the re-enrollment application. Instructions from the [place] emergency department for prescription are: 12-month prescription with 90-day supply. SW to forward to Dr. Blair. ANTONIO Sandoval-S documented in this encounter [facility] 02-11-2022 History of Presen t illness Narrative Diagnosis: 1) ITP. 2) Hereditary hemochromatosis. HPI: The patient is a 66-year-old female who was first diagnosed with ITP in 1991 after presenting with petechiae. Initial plt count was 6K. Responded well to a course of steroids. She required another course of steroids in or around 2008. She also has a remote history of seizure disorder and has been on various antiseizure medications over the years. Previous therapy: 1) Prednisone. 2) Nplate. Current therapy: 1) Promacta. 2) Phlebotomy started 10/21/2017. Was seen at [facility] for second opinion regarding ITP and comprehensive lab work was performed. She had a ferritin over 200,000. Subsequent hemochromatosis testing revealed homozygous mutation of C282Y. Presents for ongoing hematologic management. Interim history: She continues to tolerate Promacta well without any symptomatic side effect. No unusual bleeding or unexplained bruising. Undergoing evaluation for possible phlebotomy every 3 months. She has been tolerating them well although occasionally needs some hydration at the time of phlebotomy. No seizures. PMH, medications and allergies personally reviewed by me today. Any changes documented in appropriate section. ROS: Constitutional: Denies episodes of fever and night sweats. Neuro: Denies MARRERO, vertigo and imbalance. No symptoms of neuropathy. HEENT: No recent change in voice, vision or hearing. Resp: Denies cough, wheeze and hemoptysis. No shortness of breath at rest. No MERINO. CVS: Denies exertional chest pain, PND, orthopnea and LE edema. GI: Denies reflux, n/v, change in bowel habits and abdominal pain. No symptoms of stomatitis. : No dysuria or gross hematuria. No symptoms of bladder outlet obstruction. Endo: No hot flashes. Derm: No rash. Heme: See above. Psych: Normal mood. PHYSICAL EXAM: Vitals: Blood pressure 142/63, pulse 81, temperature 36.7 C (98.1 F), temperature source Temporal, weight 67.8 kg (149 lb 8 oz). Well-appearing and in no acute distress. EYES: Sclerae are anicteric bilaterally. NECK: Supple. LYMPHATIC: There is no palpable cervical, supraclavicular or axillary adenopathy. RESPIRATORY: Inspiratory breath sounds are of normal intensity in all mcneal. No rales, wheezes or rhonchi. CARDIOVASCULAR: Rhythm is regular. ABDOMEN: The abdomen is nondistended. No organomegaly. No tenderness. Extremities: No swelling or edema. SKIN: No jaundice or rash. No petechiae. NEUROLOGIC: construction director II-XII are grossly intact. No focal motor weakness. LABS: Component Latest Ref Rng & Units 02/11/2022 WBC 3.70 - 11.00 k/uL 5.15 RBC 3.90 - 5.20 m/uL 4.07 Hemoglobin 11.5 - 15.5 g/dL 11.1 (L) Hematocrit 36.0 - 46.0 % 35.3 (L) MCV 80.0 - 100.0 fL 86.7 MCH 26.0 - 34.0 pg 27.3 MCHC 30.5 - 36.0 g/dL 31.4 RDW-CV 11.5 - 15.0 % 15.3 (H) Platelet Count 150 - 400 k/uL 219 MPV 9.0 - 12.7 fL 10.1 Neut% % 65.8 Abs Neut (ANC) 1.45 - 7.50 k/uL 3.39 Lymph% % 19.8 Abs Lymph 1.00 - 4.00 k/uL 1.02 [place]% % 8.3 Abs [place] <0.87 k/uL 0.43 Eosin% % 4.7 Abs Eosin <0.46 k/uL 0.24 Baso% % 1.0 Abs Baso <0.11 k/uL 0.05 Immature Gran % % 0.4 IMMATURE GRANS (ABS) <0.10 k/uL <0.03 NRBC /100 WBC 0.0 Absolute nRBC <0.01 k/uL <0.01 DTYPE Auto ASSESSMENT/PLAN: (D69.3) Immune thrombocytopenic purpura (HCC) (primary encounter diagnosis) Assessment: -Chronic relapsing ITP. -Has not had splenectomy. -Tolerating Promacta well with great response. -Reviewed labs. Plan: -Continue Promacta. -Labs every 3 months. (E83.110) Hereditary hemochromatosis (HCC) Assessment -Incidental diagnosis. -Baseline AFP <3 ng/ml 10/05/3017. -Ferritin continues to trend lower. -Tolerating phlebotomy well overall. Plan: -Hold phlebotomy today per her preference. -Phlebotomy with aim of ferritin <50 ng/ml. -Annual AFP. Portions of this documentation were copied and pasted from previous office visit notes in order to provide a cohesive continuity of the history. The note has been reviewed and edited and updated as necessary. During this patient visit I have spent approximately 10 minutes out of 20 in counseling regarding treatment options, medications and test results and coordinating care. Juarez Blair DO documented in this encounter [facility] 11-21-2021 Miscellaneous Notes Schedule is updated, my chart message sent to patient confirming next appt. Patient is calling regards treatments and asking if she is to be every three months as she is scheduled monthly . Please advise the patient. documented in this encounter [facility] 11-21-2021 Miscellaneous Notes Order entered and filed. Juarez Blair DO Dr. Blair, Pt has an appt today for phlebo but the order is not in. Thank you, Benjamin RN documented in this encounter [facility] documented as of this encounter (statuses as of 11/20/2021) [address]29-2016 History of Past illness Narrative* Problem Noted Date Resolved Date 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 10/07/2016 Fatigue 05/09/2009 08/31/2014 Unspecified vitamin D deficiency 07/24/2008 01/06/2017 Delirium due to conditions classified elsewhere 08/31/2014 documented as of this encounter (statuses as of 11/21/2021) [address]2016 History of Past illness Narrative* Problem Noted Date Resolved Date 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 10/07/2016 Fatigue 05/09/2009 08/31/2014 Unspecified vitamin D deficiency 07/24/2008 01/06/2017 Delirium due to conditions classified elsewhere 08/31/2014 documented as of this encounter (statuses as of 11/21/2021) [place] [address] History of Past illness Narrative* Problem Noted Date Resolved Date 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 10/07/2016 Fatigue 05/09/2009 08/31/2014 Unspecified vitamin D deficiency 07/24/2008 01/06/2017 Delirium due to conditions classified elsewhere 08/31/2014 documented as of this encounter (statuses as of 02/10/2022) [address]2016 History of Past illness Narrative* Problem Noted Date Resolved Date 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 10/07/2016 Fatigue 05/09/2009 08/31/2014 Unspecified vitamin D deficiency 07/24/2008 01/06/2017 Delirium due to conditions classified elsewhere 08/31/2014 documented as of this encounter (statuses as of 02/11/2022) [address]-2016 History of Past illness Narrative* Problem Noted Date Resolved Date 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 10/07/2016 Fatigue 05/09/2009 08/31/2014 Unspecified vitamin D deficiency 07/24/2008 01/06/2017 Delirium due to conditions classified elsewhere 08/31/2014 documented as of this encounter (statuses as of 05/04/2022) [address]2016 History of Past illness Narrative* Problem Noted Date Resolved Date 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 10/07/2016 Fatigue 05/09/2009 08/31/2014 Unspecified vitamin D deficiency 07/24/2008 01/06/2017 Delirium due to conditions classified elsewhere 08/31/2014 documented as of this encounter (statuses as of 05/05/2022) [place] [address] History of Past illness Narrative* Problem Noted Date Resolved Date 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 10/07/2016 Fatigue 05/09/2009 08/31/2014 Unspecified vitamin D deficiency 07/24/2008 01/06/2017 Delirium due to conditions classified elsewhere 08/31/2014 documented as of this encounter (statuses as of 06/03/2022) [address]2016 History of Past illness Narrative* Problem Noted Date Resolved Date 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 10/07/2016 Fatigue 05/09/2009 08/31/2014 Unspecified vitamin D deficiency 07/24/2008 01/06/2017 Delirium due to conditions classified elsewhere 08/31/2014 documented as of this encounter (statuses as of 07/29/2022) [address]2016 History of Past illness Narrative* Problem Noted Date Resolved Date 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 10/07/2016 Fatigue 05/09/2009 08/31/2014 Unspecified vitamin D deficiency 07/24/2008 01/06/2017 Delirium due to conditions classified elsewhere 08/31/2014 documented as of this encounter (statuses as of 07/29/2022) [address]2016 History of Past illness Narrative* Problem Noted Date Resolved Date 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 10/07/2016 Fatigue 05/09/2009 08/31/2014 Unspecified vitamin D deficiency 07/24/2008 01/06/2017 Delirium due to conditions classified elsewhere 08/31/2014 documented as of this encounter (statuses as of 07/29/2022) [address]2016 History of Past illness Narrative* Problem Noted Date Resolved Date 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 10/07/2016 Fatigue 05/09/2009 08/31/2014 Unspecified vitamin D deficiency 07/24/2008 01/06/2017 Delirium due to conditions classified elsewhere 08/31/2014 documented as of this encounter (statuses as of 10/21/2022) [address]2016 History of Past illness Narrative* Problem Noted Date Resolved Date 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 10/07/2016 Fatigue 05/09/2009 08/31/2014 Unspecified vitamin D deficiency 07/24/2008 01/06/2017 Delirium due to conditions classified elsewhere 08/31/2014 documented as of this encounter (statuses as of 01/13/2023) [address]2016 History of Past illness Narrative* Problem Noted Date Resolved Date 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 10/07/2016 Fatigue 05/09/2009 08/31/2014 Unspecified vitamin D deficiency 07/24/2008 01/06/2017 Delirium due to conditions classified elsewhere 08/31/2014 documented as of this encounter (statuses as of 01/13/2023) [address]2016 History of Past illness Narrative* Problem Noted Date Resolved Date 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 10/07/2016 Fatigue 05/09/2009 08/31/2014 Unspecified vitamin D deficiency 07/24/2008 01/06/2017 Delirium due to conditions classified elsewhere 08/31/2014 documented as of this encounter (statuses as of 01/13/2023) [address]2016 History of Past illness Narrative* Problem Noted Date Diagnosed Date Resolved Date 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 10/07/2016 Fatigue 05/09/2009 08/31/2014 Unspecified vitamin D deficiency 07/24/2008 01/06/2017 Delirium due to conditions c lassified elsewhere 08/31/2014 documented as of this encounter (statuses as of 04/07/2023) [address]2016 History of Past illness Narrative* Problem Noted Date Diagnosed Date Resolved Date 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 10/07/2016 Fatigue 05/09/2009 08/31/2014 Unspecified vitamin D deficiency 07/24/2008 01/06/2017 Delirium due to conditions c lassified elsewhere 08/31/2014 documented as of this encounter (statuses as of 04/07/2023) [address]2016 History of Past illness Narrative* Problem Noted Date Diagnosed Date Resolved Date 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 10/07/2016 Fatigue 05/09/2009 08/31/2014 Unspecified vitamin D deficiency 07/24/2008 01/06/2017 Delirium due to conditions c lassified elsewhere 08/31/2014 documented as of this encounter (statuses as of 04/09/2023) [address]2016 History of Past illness Narrative* Problem Noted Date Diagnosed Date Resolved Date 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 10/07/2016 Fatigue 05/09/2009 08/31/2014 Unspecified vitamin D deficiency 07/24/2008 01/06/2017 Delirium due to conditions c lassified elsewhere 08/31/2014 documented as of this encounter (statuses as of 05/11/2023) [facility]2016 History of Past illness Narrative* Problem Noted Date Diagnosed Date Resolved Date 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 10/07/2016 Fatigue 05/09/2009 08/31/2014 Unspecified vitamin D deficiency 07/24/2008 01/06/2017 Delirium due to conditions c lassified elsewhere 08/31/2014 documented as of this encounter (statuses as of 07/01/2023) [facility] Diagnosis Immune thrombocytopenic purpura (HCC)- Primary Immune thrombocytopenic purpura Hereditary hemochromatosis (HCC) Hereditary hemochromatosis [facility] this [facility] Diagnosis Hereditary hemochromatosis (HCC)- Primary Hereditary hemochromatosis [facility] Diagnosis Immune thrombocytopenic purpura (HCC)- Primary Immune thrombocytopenic purpura Hereditary hemochromatosis (HCC) Hereditary hemochromatosis [facility] Diagnosis Immune thrombocytopenic purpura (HCC)- Primary Immune thrombocytopenic purpura Hereditary hemochromatosis (HCC) Hereditary hemochromatosis [facility] Diagnosis Immune thrombocytopenic purpura (HCC)- Primary Immune thrombocytopenic purpura Hereditary hemochromatosis (HCC) Hereditary hemochromatosis documented [facility] this [facility] Diagnosis Hereditary hemochromatosis (HCC)- Primary Hereditary hemochromatosis [facility] Diagnosis Hereditary hemochromatosis (HCC)- Primary Hereditary hemochromatosis Immune thrombocytopenic purpura (HCC) Immune thrombocytopenic purpura documented [facility] this [facility] Diagnosis Immune thrombocytopenic purpura (HCC)- Primary Immune thrombocytopenic purpura documented [facility] Diagnosis Immune thrombocytopenic purpura (HCC)- Primary Immune thrombocytopenic purpura Hereditary hemochromatosis (HCC) Hereditary hemochromatosis [facility] Diagnosis Hereditary hemochromatosis (HCC)- Primary Hereditary hemochromatosis [facility] Diagnosis Hereditary hemochromatosis (HCC)- Primary Hereditary hemochromatosis documented in this encounter [facility] note* Diagnosis Hereditary hemochromatosis (HCC)- Primary Hereditary hemochromatosis documented in this encounter [facility] Summary Purpose Family History No Family History Records FoundNo Family History Records FoundNo Family History Records Found Advance Directives No Advanced Directives Records FoundDocuments on File Type Date Recorded 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 Advance Directive(s) 12/25/2015 1:37 PM Additional Source Comments INFORMATION SOURCE (unrecogn ized section and content) DATE CREATED AUTHOR AUTHOR'S ORGANIZ ATION 01/18/2022 [facility] DATE CREATED AUTHOR AUTHOR'S ORGANIZ ATION 07/03/2023 [facility] Source Comments (unrecognize d section and content) In the event this informatio n is protected by the Federal Confidentiality of Alcohol and Drug Abuse Patient Records regulations: The Federal rules restrict any use of the information to criminally investigate or prosecute any alcohol or drug abuse patient.[facility] the event this information is protected by the Federal Confidentiality of Alcohol and Drug Abuse Patient Records regulations: The Federal rules restrict any use of the information to criminally investigate or prosecute any alcohol or drug abuse patient.[facility] the event this information is protected by the Federal Confidentiality of Alcohol and Drug Abuse Patient Records regulations: The Federal rules restrict any use of the information to criminally investigate or prosecute any alcohol or drug abuse patient.[facility] the event this information is protected by the Federal Confidentiality of Alcohol and Drug Abuse Patient Records regulations: The Federal rules restrict any use of the information to criminally investigate or prosecute any alcohol or drug abuse patient.[facility] the event this information is protected by the Federal Confidentiality of Alcohol and Drug Abuse Patient Records regulations: The Federal rules restrict any use of the information to criminally investigate or prosecute any alcohol or drug abuse patient.[facility] the event this information is protected by the Federal Confidentiality of Alcohol and Drug Abuse Patient Records regulations: The Federal rules restrict any use of the information to criminally investigate or prosecute any alcohol or drug abuse patient.[facility] the event this information is protected by the Federal Confidentiality of Alcohol and Drug Abuse Patient Records regulations: The Federal rules restrict any use of the information to criminally investigate or prosecute any alcohol or drug abuse patient.[facility] the event this information is protected by the Federal Confidentiality of Alcohol and Drug Abuse Patient Records regulations: The Federal rules restrict any use of the information to criminally investigate or prosecute any alcohol or drug abuse patient.[facility] the event this information is protected by the Federal Confidentiality of Alcohol and Drug Abuse Patient Records regulations: The Federal rules restrict any use of the information to criminally investigate or prosecute any alcohol or drug abuse patient.[facility] the event this information is protected by the Federal Confidentiality of Alcohol and Drug Abuse Patient Records regulations: The Federal rules restrict any use of the information to criminally investigate or prosecute any alcohol or drug abuse patient.[facility] the event this information is protected by the Federal Confidentiality of Alcohol and Drug Abuse Patient Records regulations: The Federal rules restrict any use of the information to criminally investigate or prosecute any alcohol or drug abuse patient.[facility] the event this information is protected by the Federal Confidentiality of Alcohol and Drug Abuse Patient Records regulations: The Federal rules restrict any use of the information to criminally investigate or prosecute any alcohol or drug abuse patient.[facility] the event this information is protected by the Federal Confidentiality of Alcohol and Drug Abuse Patient Records regulations: The Federal rules restrict any use of the information to criminally investigate or prosecute any alcohol or drug abuse patient.[facility] the event this information is protected by the Federal Confidentiality of Alcohol and Drug Abuse Patient Records regulations: The Federal rules restrict any use of the information to criminally investigate or prosecute any alcohol or drug abuse patient.[facility] the event this information is protected by the Federal Confidentiality of Alcohol and Drug Abuse Patient Records regulations: The Federal rules restrict any use of the information to criminally investigate or prosecute any alcohol or drug abuse patient.[facility] the event this information is protected by the Federal Confidentiality of Alcohol and Drug Abuse Patient Records regulations: The Federal rules restrict any use of the information to criminally investigate or prosecute any alcohol or drug abuse patient.[facility] the event this information is protected by the Federal Confidentiality of Alcohol and Drug Abuse Patient Records regulations: The Federal rules restrict any use of the information to criminally investigate or prosecute any alcohol or drug abuse patient.[facility] the event this information is protected by the Federal Confidentiality of Alcohol and Drug Abuse Patient Records regulations: The Federal rules restrict any use of the information to criminally investigate or prosecute any alcohol or drug abuse patient.[facility] the event this information is protected by the Federal Confidentiality of Alcohol and Drug Abuse Patient Records regulations: The Federal rules restrict any use of the information to criminally investigate or prosecute any alcohol or drug abuse patient.[facility] the event this information is protected by the Federal Confidentiality of Alcohol and Drug Abuse Patient Records regulations: The Federal rules restrict any use of the information to criminally investigate or prosecute any alcohol or drug abuse patient.[facility] the event this information is protected by the Federal Confidentiality of Alcohol and Drug Abuse Patient Records regulations: The Federal rules restrict any use of the information to criminally investigate or prosecute any alcohol or drug abuse patient.[facility] Care Teams (unrecognized sec tion and content) Tin Pot Operator Relationship Specialty Start Date End Date Shama Fernandez [address] [place] [address] PCP - General Family Practice 05/17/20 Tin Pot Operator Relationship Specialty Start Date End Date Shama FernandezTOWN [address] [place] [address] PCP - General Family Practice 05/17/20 Tin Pot Operator Relationship Specialty Start Date End Date Shama Fernandez [address] [place] [address] PCP - General Family Practice 05/17/20 Tin Pot Operator Relationship Specialty Start Date End Date Shama Fernandez [address] [facility] [address] [place] [address] PCP - General Family Medicine 05/17/20 Tin Pot Operator Relationship Specialty Start Date End Date Shama Fernandez [address] [facility] [address] [place] [address] PCP - General Family Medicine 05/17/20 Tin Pot Operator Relationship Specialty Start Date End Date Shama Fernandez [address] [facility] [address] [place] [address] PCP - General Family Medicine 05/17/20 Tin Pot Operator Relationship Specialty Start Date End Date Shama Fernandez [address] [facility] [address] [place] [address] PCP - General Family Medicine 05/17/20 Tin Pot Operator Relationship Specialty Start Date End Date Shama Fernandez [address] [facility] [address] [place] [address] PCP - General Family Medicine 05/17/20 Tin Pot Operator Relationship Specialty Start Date End Date Shama Fernandez [address] [facility] [address] [place] [address] PCP - General Family Medicine 05/17/20 Tin Pot Operator Relationship Specialty Start Date End Date Shama Fernandez MD [address] [facility] [place] [address] PCP - General Family Medicine 05/17/20 Tin Pot Operator Relationship Specialty Start Date End Date Shama Fernandez MD [address] [facility] [address] [place], [place] [id number] PCP - General Family Medicine 05/17/20 Tin Pot Operator Relationship Specialty Start Date End Date Shama Fernandez MD [address] [facility] [address] [place], [place] [id number] PCP - General Family Medicine 05/17/20 Reason for Visit (unrecogniz ed section and content) Reason Comments Phlebotomy Reason Comments Appointment Reason Comments Established Patient Reason Comments Prescription for med assist reenrollment Reason Comments Results Reason Comments Promacta Assistance Renewal FOR RECORDS PERTAINING TO PATIENTS WHO ARE OR HAVE BEEN ENROLLED IN A CHEMICAL DEPENDENCY/SUBSTANCEABUSE PROGRAM, SOME INFORMATION MAY BE OMITTED. This clinical summary was aggregated from multiple sources. Caution should be exercised in using it in the provision of clinical care. This summary normalizes information from multiple sources, and as a consequence, information in this document may materially change the coding, format and clinical context of patient data. In addition, data may be omitted in some cases. CLINICAL DECISIONS SHOULD BE BASED ON THE PRIMARY CLINICAL RECORDS. [facility] [email or web address] [facility]. provides no warranty or guarantee of the accuracy or completeness of information in this document.
[2023-09-01 12:24] LABS: Color, Urine Straw (Yellow); Glucose, Dipstick 1000 mg/dl (Normal); Ketone-Dipstick Negative (Negative); Leukocyte Esterase-Dipstick 500 /ul (Negative); Nitrite-Dipstick Negative (Negative); Occult Blood-Urine 10 /ul (Negative); Protein-Dipstick Negative (Negative); Specific Gravity, Urine 1.015 (1.002-1.030); Urine Bilirubin Dipstick Negative (Negative); Urine Clarity Clear (Clear); Urine Urobilinogen Normal (Normal)
[2023-09-01 12:32] LABS: Bacteria 1+ /hpf (None Seen); Red Blood Cells-Urine 0-5 SEEN /hpf (0-5); White Blood Cells 5-10 SEEN /hpf (0-5)
[2023-09-01 12:33] LABS: Absolute Lymphocyte Count 0.92 X10^3/uL (0.83-4.51); Absolute Neutrophil Count 3.8 X10^3/uL (2.0-7.7); Basophil# 0.04 X10^3/uL; Basophil% 0.7 % (0-1); Eosinophil# 0.33 X10^3/uL; Eosinophils% 5.9 % (0-5); Hematocrit 38.1 % (37-47); Hemoglobin 12.2 g/dL (12.0-15.0); Lymphocyte # 0.92 X10^3/ul (0.83-4.51); Lymphocyte % 16.4 % (19-41); Mean Corpuscular Hgb 29.5 pg (27.0-32.0); Mean Corpuscular Volume 92.3 fL (81-99); Mean Platelet Vol. 10.5 fl (6.2-12.0); Monocyte# 0.49 X10^3/uL; Monocyte% 8.7 % (0-10); NRBC Flagged by Analyzer 0 % (0-5); Neutrophil # 3.82 X10^3/uL (2.7-7.7); Neutrophil % 68.1 % (47-70); Platelet Count 256 K/mm3 (150-450); RBC Distribution Width CV 15.3 % (11.6-14.6); RBC Distribution Width SD 51.8 fl (35.1-43.9); Red Blood Count 4.13 M/mm3 (4.2-5.4); White Blood Count 5.6 K/mm3 (4.4-11.0)
[2023-09-01 12:47] LABS: ALB/GLOB Ratio 1.1 RATIO (0.9-2.4); AST(SGOT) 21 U/L (15-37); Alanine Aminotransfer ALT/SGPT 21 U/L (13-56); Albumin, Serum 4.1 g/dL (3.2-5.0); Alkaline Phosphatase 37 U/L (45-117); Anion Gap 7 (5-15); BUN 23 mg/dL (7-18); BUN/Creat Ratio 21.3 RATIO (10-20); Calcium,Total 10.4 mg/dL (8.5-10.1); Chloride 105 mmol/L (98-107); Cholesterol 131 mg/dL (200); Creatinine, Serum 1.08 mg/dL (0.55-1.02); EST Glomerular Filtration Rate 53 mL/min (>60); Est Glom Filt Rate - Afr Amer 65 mL/min (>60); Globulin 3.6 g/dL (2.2-4.2); Glucose 124 mg/dL (74-106); High Density Lipoprotein 48 mg/dL; Phosphorus 3.9 mg/dL (2.5-4.9); Potassium 4.6 mmol/L (3.5-5.1); Protein, Total 7.7 g/dL (6.4-8.2); Sodium Level 141 mmol/L (136-145); Triglycerides 94 mg/dL; Very Low Density Lipoprotein 19 mg/dL (5-40)
[2023-09-01 12:52] LABS: PTHIN 15.5 pg/mL (18.4-80.1)
[2023-09-01 13:01] LABS: Hemoglobin A1c 6.5 % (3.8-5.6)
[2023-09-01 13:15] LABS: Microalbumin,Random Urine 20.4 mg/L (NO RANGE EST.); Microalbumin:Creatinine Ratio 33.2 mg/g CRE (<30 mg/g CRE); Protein, Urine (Random) 10.4 mg/dL (<11.9); Protein:Creat Ratio 169 mg/g CRE (0-200)
== END | disposition home or self-care (01) ==
LOC: MFPLAB 10:05
PROVIDERS: PCP Family Medicine; Visit Provider Family Medicine
DX: E11.22 Type 2 diabetes mellitus with diabetic chronic kidney disease (principal); N18.9 Chronic kidney disease, unspecified
CPT/HCPCS: 36415; 80053; 80061; 81001; 82043; 82570; 83036; 83970; 84100; 84156; 85025

== ENCOUNTER → 2024-01-06 | Outpatient (CLI) | payer MEDICARE, BC, SELFPAY ==
[2024-01-06 09:33] LABS: Mucous, Urine 0 SEEN /hpf (<or=2+)
[2024-01-06 12:08] LABS: Absolute Neutrophil Count 2.8 X10^3/uL (2.0-7.7); Basophil# 0.03 X10^3/uL; Basophil% 0.7 % (0-1); Eosinophil# 0.21 X10^3/uL; Hematocrit 33.4 % (37-47); Hemoglobin 10.2 g/dL (12.0-15.0); Lymphocyte % 18.9 % (19-41); Mean Corp Hgb Conc 30.5 g/dL (32-36); Mean Corpuscular Hgb 28.4 pg (27.0-32.0); Monocyte# 0.37 X10^3/uL; Monocyte% 8.7 % (0-10); NRBC Flagged by Analyzer 0 % (0-5); Neutrophil # 2.81 X10^3/uL (2.7-7.7); Neutrophil % 66.5 % (47-70); Platelet Count 261 K/mm3 (150-450); RBC Distribution Width CV 13.5 % (11.6-14.6); RBC Distribution Width SD 46.1 fl (35.1-43.9); Red Blood Count 3.59 M/mm3 (4.2-5.4); White Blood Count 4.2 K/mm3 (4.4-11.0)
[2024-01-06 12:20] LABS: Color, Urine Yellow (Yellow); Glucose, Dipstick 1000 mg/dl (Normal); Ketone-Dipstick Negative (Negative); Leukocyte Esterase-Dipstick 500 /ul (Negative); Nitrite-Dipstick Negative (Negative); Occult Blood-Urine Negative /ul (Negative); Protein-Dipstick Negative (Negative); Urine Bilirubin Dipstick Negative (Negative); Urine Clarity Clear (Clear); Urine Urobilinogen Normal (Normal)
[2024-01-06 12:37] LABS: PTHIN 30.8 pg/mL (18.4-80.1)
[2024-01-06 12:40] LABS: Vitamin D,25 Hydroxy 41.3 ng/mL
[2024-01-06 12:45] LABS: Bacteria 1+ /hpf (None Seen); White Blood Cells 5-10 SEEN /hpf (0-5)
[2024-01-06 12:46] LABS: Renal Epithelial Cells 0-5 SEEN /hpf (0-5); Squamous Epithelial Cells - UA 0-5 SEEN /hpf (5-10)
[2024-01-06 12:47] LABS: Red Blood Cells-Urine 0-5 SEEN /hpf (0-5)
[2024-01-06 12:48] LABS: Transitional Epithelial - Ur 0-5 SEEN /hpf (0-5)
[2024-01-06 12:59] LABS: ALB/GLOB Ratio 1.2 RATIO (0.9-2.4); AST(SGOT) 19 U/L (15-37); Alanine Aminotransfer ALT/SGPT 20 U/L (13-56); Albumin, Serum 4.1 g/dL (3.2-5.0); Alkaline Phosphatase 33 U/L (45-117); Anion Gap 8 (5-15); BUN 25 mg/dL (7-18); BUN/Creat Ratio 24.5 RATIO (10-20); Calcium,Total 9.4 mg/dL (8.5-10.1); Chloride 105 mmol/L (98-107); Cholesterol 136 mg/dL (200); Creatinine, Serum 1.02 mg/dL (0.55-1.02); EST Glomerular Filtration Rate 57 mL/min (>60); Est Glom Filt Rate - Afr Amer 69 mL/min (>60); Globulin 3.4 g/dL (2.2-4.2); Glucose 193 mg/dL (74-106); High Density Lipoprotein 56 mg/dL; Phosphorus 3.1 mg/dL (2.5-4.9); Potassium 4.5 mmol/L (3.5-5.1); Protein, Total 7.5 g/dL (6.4-8.2); Sodium Level 139 mmol/L (136-145); Triglycerides 92 mg/dL; Very Low Density Lipoprotein 18 mg/dL (5-40)
[2024-01-06 13:15] LABS: Microalbumin,Random Urine 12.1 mg/L (NO RANGE EST.); Microalbumin:Creatinine Ratio 28.3 mg/g CRE (<30 mg/g CRE); Protein:Creat Ratio 258 mg/g CRE (0-200)
[2024-01-07 12:30] LABS: Ferritin 5 ng/mL (8-252); Iron 53 ug/dL (50-170); Iron Binding Capacity,Total 364 ug/dL (250-450); PERCENT IRON SATURATION 14.6 % (15.0-55.0)
[2024-01-07 19:30] LABS: Vitamin B12 361 pg/mL (211-911)
== END | disposition home or self-care (01) ==
LOC: MFPLAB 09:25
PROVIDERS: PCP Family Medicine; Visit Provider Family Medicine
DX: E11.22 Type 2 diabetes mellitus with diabetic chronic kidney disease (principal); E11.69 Type 2 diabetes mellitus with other specified complication; E11.59 Type 2 diabetes mellitus with other circulatory complications; M81.0 Age-related osteoporosis without current pathological fracture; D64.9 Anemia, unspecified
CPT/HCPCS: 80053; 80061; 81001; 82043; 82306; 82570; 82607; 82728; 83036; 83540; 83550; 83970; 84100; 84156; 85025

== ENCOUNTER → 2024-05-05 | Outpatient (CLI) | payer MEDICARE, BC, SELFPAY ==
--- NOTE | 2024-05-05 15:18 | RAD_ITS ---
EXAM: XR LEFT ANKLE COMPLETE, 3 OR MORE VIEWS CLINICAL INDICATION: HEEL PAIN TECHNIQUE: Frontal, lateral and oblique views of the left ankle. COMPARISON: No relevant prior studies available. FINDINGS: BONES/JOINTS: Calcaneal spur. No acute fracture. No subluxation. Normal alignment. Preservation of the joint space. No sclerotic or destructive changes observed. SOFT TISSUES: Unremarkable. No soft tissue swelling or gas. No radiopaque foreign body. RAD/Ankle min 3 Views IMPRESSION: Calcaneal spur. Electronically Signed: Simón Magallanes MD at 15:00 EDT ,
[2024-05-05 15:23] LABS: Mucous, Urine 0 SEEN /hpf (<or=2+)
[2024-05-05 17:40] LABS: Absolute Lymphocyte Count 1.27 X10^3/uL (0.83-4.51); Absolute Neutrophil Count 4.2 X10^3/uL (2.0-7.7); Basophil# 0.04 X10^3/uL; Basophil% 0.6 % (0-1); Eosinophil# 0.32 X10^3/uL; Hematocrit 38.7 % (37-47); Hemoglobin 11.8 g/dL (12.0-15.0); Lymphocyte # 1.27 X10^3/ul (0.83-4.51); Mean Corp Hgb Conc 30.5 g/dL (32-36); Mean Corpuscular Hgb 27.6 pg (27.0-32.0); Mean Corpuscular Volume 90.6 fL (81-99); Mean Platelet Vol. 10.7 fl (6.2-12.0); Monocyte# 0.53 X10^3/uL; Monocyte% 8.3 % (0-10); NRBC Flagged by Analyzer 0 % (0-5); Neutrophil # 4.19 X10^3/uL (2.7-7.7); Neutrophil % 65.9 % (47-70); Platelet Count 276 K/mm3 (150-450); RBC Distribution Width CV 15.4 % (11.6-14.6); RBC Distribution Width SD 51.2 fl (35.1-43.9); Red Blood Count 4.27 M/mm3 (4.2-5.4); White Blood Count 6.4 K/mm3 (4.4-11.0)
[2024-05-05 17:49] LABS: Color, Urine Yellow (Yellow); Glucose, Dipstick 1000 mg/dl (Normal); Ketone-Dipstick Negative (Negative); Leukocyte Esterase-Dipstick 100 /ul (Negative); Nitrite-Dipstick Negative (Negative); Occult Blood-Urine 25 /ul (Negative); Protein-Dipstick Negative (Negative); Urine Bilirubin Dipstick Negative (Negative); Urine Clarity Sl. Cloudy (Clear); Urine Urobilinogen Normal (Normal)
[2024-05-05 18:01] LABS: ALB/GLOB Ratio 1.1 RATIO (0.9-2.4); AST(SGOT) 12 U/L (15-37); Alanine Aminotransfer ALT/SGPT 19 U/L (13-56); Albumin, Serum 4.3 g/dL (3.2-5.0); Alkaline Phosphatase 35 U/L (45-117); Anion Gap 6 (5-15); BUN 21 mg/dL (7-18); Calcium,Total 9.5 mg/dL (8.5-10.1); Chloride 106 mmol/L (98-107); Cholesterol 150 mg/dL (200); Creatinine, Serum 0.96 mg/dL (0.55-1.02); EST Glomerular Filtration Rate 61 mL/min (>60); Est Glom Filt Rate - Afr Amer 74 mL/min (>60); Globulin 3.8 g/dL (2.2-4.2); Glucose 101 mg/dL (74-106); High Density Lipoprotein 59 mg/dL; Magnesium 2.4 mg/dL (1.6-2.6); Protein, Total 8.1 g/dL (6.4-8.2); Sodium Level 139 mmol/L (136-145); Triglycerides 111 mg/dL; Very Low Density Lipoprotein 22 mg/dL (5-40); Vitamin D,25 Hydroxy 35.8 ng/mL
[2024-05-05 18:03] LABS: White Blood Cells 5-10 SEEN /hpf (0-5)
[2024-05-05 18:05] LABS: Bacteria RARE /hpf (None Seen); Red Blood Cells-Urine 0-5 SEEN /hpf (0-5); Squamous Epithelial Cells - UA 0-5 SEEN /hpf (5-10)
[2024-05-05 18:07] LABS: Protein, Urine (Random) 16.7 mg/dL (<11.9); Protein:Creat Ratio 428 mg/g CRE (0-200)
[2024-05-05 18:28] LABS: Hemoglobin A1c 6.5 % (3.8-5.6)
== END | disposition home or self-care (01) ==
LOC: MTLAB 15:17
PROVIDERS: PCP Family Medicine; Referring Provider Family Medicine; Visit Provider Family Medicine
DX: E11.22 Type 2 diabetes mellitus with diabetic chronic kidney disease (principal); E11.69 Type 2 diabetes mellitus with other specified complication; N18.30 Chronic kidney disease, stage 3 unspecified; M81.0 Age-related osteoporosis without current pathological fracture; M79.672 Pain in left foot
CPT/HCPCS: 36415; 73610; 80053; 80061; 81001; 82306; 82570; 83036; 83735; 83970; 84156; 85025

== ENCOUNTER → 2024-06-16 | Outpatient (CLI) | payer MEDICARE, BC, SELFPAY ==
[2024-06-16 11:09] LABS: Anion Gap 4 (5-15); BUN 32 mg/dL (7-18); BUN/Creat Ratio 25.8 RATIO (10-20); Calcium,Total 9.7 mg/dL (8.5-10.1); Chloride 102 mmol/L (98-107); Creatinine, Serum 1.24 mg/dL (0.55-1.02); EST Glomerular Filtration Rate 45 mL/min (>60); Est Glom Filt Rate - Afr Amer 55 mL/min (>60); Glucose 220 mg/dL (74-106); PTHIN 30.6 pg/mL (18.4-80.1); Potassium 4.9 mmol/L (3.5-5.1); Sodium Level 136 mmol/L (136-145)
== END | disposition home or self-care (01) ==
PROVIDERS: PCP Family Medicine; Referring Provider Family Medicine; Visit Provider Family Medicine
DX: E83.52 Hypercalcemia (principal)
CPT/HCPCS: 36415; 80048; 83970

== ENCOUNTER → 2024-06-26 | Outpatient (CLI) | payer MEDICARE, BC, SELFPAY ==
[2024-06-26 10:39] LABS: Anion Gap 6 (5-15); BUN 24 mg/dL (7-18); BUN/Creat Ratio 26.3 RATIO (10-20); Calcium,Total 9.9 mg/dL (8.5-10.1); Chloride 106 mmol/L (98-107); Creatinine, Serum 0.91 mg/dL (0.55-1.02); EST Glomerular Filtration Rate 65 mL/min (>60); Est Glom Filt Rate - Afr Amer 78 mL/min (>60); Glucose 108 mg/dL (74-106); Potassium 4.5 mmol/L (3.5-5.1); Sodium Level 140 mmol/L (136-145)
== END | disposition home or self-care (01) ==
LOC: MFPLAB 08:23
PROVIDERS: PCP Family Medicine; Referring Provider Family Medicine; Visit Provider Family Medicine
DX: E11.22 Type 2 diabetes mellitus with diabetic chronic kidney disease (principal); N18.9 Chronic kidney disease, unspecified
CPT/HCPCS: 36415; 80048

== ENCOUNTER → 2024-07-14 | Outpatient (CLI) | payer MEDICARE, BC, SELFPAY ==
--- NOTE | 2024-07-14 12:39 | BI_ITS ---
MAMMOGRAPHY - BILATERAL SCREENING 3-D TOMOSYNTHESIS REASON FOR EXAM: Female, 69 years old. annual screening PERTINENT HISTORY: No significant family history. TECHNIQUE: 2-D mammograms and 3-D Tomosynthesis of the breast (s) were performed. CAD was performed. COMPARISON: 06/22/2023 FINDINGS: The breast composition is composed of scattered fibroglandular density. Scattered benign calcifications are seen. No dense spiculated masses or suspicious microcalcifications are identified. No architectural distortion is identified. There is no skin thickening or retraction. There has been no significant change since the prior study. BI/SCRN MAMM (CAD)W/YOSI BILAT IMPRESSION: No mammographic signs of malignancy. Routine yearly mammograms recommended. ASSESSMENT CATEGORY: BIRADS Category 1: Negative. A letter regarding these results will be sent to the patient by the facility within 30 days. FOLLOW UP RECOMMENDATION: Yearly follow up mammogram recommended. (A) Approximately 10% of breast cancers are not detected by mammography. A normal mammogram should not delay biopsy of a clinically suspicious abnormality. Electronically Signed: Toby Lyons MD at 20:00 EST ,
--- NOTE | 2024-07-14 12:39 | BD_ITS ---
STUDY: DUAL ENERGY X-RAY ABSORPTIOMETRY / DXA REASON FOR EXAM: Female, 69 years old. 733.00OsteoporosisBONE DENSITY REASON FOR EXAM TECHNIQUE: Bone Mineral Density (BMD) measurements of lumbar spine and left hip were obtained. COMPARISON: 01/27/2022 FINDINGS: Lumbar Spine (L1-L4): g/cm2 (0.92) / T-score (-0.5) / Z-score (1.6) Findings are suggestive of normal bone density with a low fracture risk. Left Femur Total: g/cm2 (0.747) / T-score (-1.6) / Z-score (-0.1) Left Femoral Neck: g/cm2 (0.566) / T-score (-2.5) / Z-score (-0.7) BD/Dexa Bone Density Study IMPRESSION: The patient is considered osteoporotic as outlined below according to World Jovi Organization (WHO) criteria with a high fracture risk. There has been improvement of bone density since the previous examination. Reference Information: The T-score is the number of standard deviations above or below the standard which is normal for young adults at their peak bone mineral density. The World Health Organization (WHO) interprets the T-scores as follows: Above -1 Normal bone density Between -1 and -2.5 Osteopenia Equal to / or below -2.5 Osteoporosis As a practical clinical guideline, osteopenia may be graded as follows: Mild -1 through -1.5 Moderate -1.6 through -2.0 Severe -2.1 through -2.4 The Z-score is the number of standard deviations above or below age-matched controls. A Z-score of less than -1.5 would be considered abnormal. References: 1. NIH Osteoporosis and Related Bone Diseases www osteo.org 2. International Society for Clinical Densitometry www iscd.org 3. National Osteoporosis Foundation www nof.org Electronically Signed: Toby Lyons MD at 17:23 EST ,
== END | disposition home or self-care (01) ==
LOC: OPBD 12:37
PROVIDERS: PCP Family Medicine; Referring Provider Family Medicine; Visit Provider Family Medicine
DX: Z12.31 Encounter for screening mammogram for malignant neoplasm of breast (principal); M81.0 Age-related osteoporosis without current pathological fracture
CPT/HCPCS: 77063; 77067; 77080

== ENCOUNTER → 2024-10-26 | Outpatient (CLI) | payer MEDICARE, BC, SELFPAY ==
[2024-10-26 11:58] LABS: Microalbumin,Random Urine 22.2 mg/L (NO RANGE EST.); Microalbumin:Creatinine Ratio 649.1 mg/g CRE; Protein, Urine (Random) 9.4 mg/dL (0.0-12.0); Protein:Creat Ratio 274 mg/g CRE (0-200)
[2024-10-26 12:47] LABS: Absolute Lymphocyte Count 0.99 X10^3/uL (0.83-4.51); Absolute Neutrophil Count 5.2 X10^3/uL (2.0-7.7); Basophil# 0.05 X10^3/uL; Basophil% 0.7 % (0-1); Eosinophil# 0.32 X10^3/uL; Eosinophils% 4.5 % (0-5); Hematocrit 39.5 % (37-47); Lymphocyte # 0.99 X10^3/ul (0.83-4.51); Mean Corp Hgb Conc 32.9 g/dL (32-36); Mean Corpuscular Hgb 31.6 pg (27.0-32.0); Mean Corpuscular Volume 95.9 fL (81-99); Monocyte# 0.51 X10^3/uL; Monocyte% 7.2 % (0-10); NRBC Flagged by Analyzer 0 % (0-5); Neutrophil # 5.18 X10^3/uL (2.7-7.7); Neutrophil % 73.3 % (47-70); Platelet Count 293 K/mm3 (150-450); RBC Distribution Width CV 13.3 % (11.6-14.6); RBC Distribution Width SD 47.5 fl (35.1-43.9); Red Blood Count 4.12 M/mm3 (4.2-5.4); White Blood Count 7.1 K/mm3 (4.4-11.0)
[2024-10-26 13:34] LABS: Hemoglobin A1c 6.5 % (<=5.6)
[2024-10-26 13:46] LABS: ALB/GLOB Ratio 1.6 RATIO (0.9-2.4); AST(SGOT) 25 U/L (<=31); Alanine Aminotransfer ALT/SGPT 15 U/L (<=34); Albumin, Serum 4.8 g/dL (3.4-4.8); Alkaline Phosphatase 45 U/L (35-104); Anion Gap 15 (5-15); BUN 20 mg/dL (4-19); BUN/Creat Ratio 21.8 RATIO (10-20); Calcium,Total 10.4 mg/dL (7.6-11.0); Carbon Dioxide 25.2 mmol/L (21.0-32.0); Chloride 101 mmol/L (98-108); Cholesterol 136 mg/dL (<=200); Creatinine, Serum 0.94 mg/dL (0.70-1.20); EST Glomerular Filtration Rate 66 (>60); Glucose 138 mg/dL (70-99); High Density Lipoprotein 51 mg/dL; Low Density Lipoprotein Calc. 59 mg/dL; Potassium 4.3 mmol/L (3.3-5.1); Protein, Total 7.8 g/dL (5.9-8.4); Sodium Level 141 mmol/L (133-145); Triglycerides 133 mg/dL; Very Low Density Lipoprotein 27 mg/dL (5-40); cholesterol:hdl ratio screen 2.68
[2024-10-26 13:51] LABS: Vitamin D,25 Hydroxy 41.3 ng/mL (30-100)
== END | disposition home or self-care (01) ==
LOC: MFPLAB 09:36
PROVIDERS: PCP Family Medicine; Referring Provider Family Medicine; Visit Provider Family Medicine
DX: E11.22 Type 2 diabetes mellitus with diabetic chronic kidney disease (principal); N18.30 Chronic kidney disease, stage 3 unspecified
CPT/HCPCS: 36415; 80053; 80061; 82043; 82306; 82570; 83036; 84156; 85025

== ENCOUNTER → 2025-03-08 | Outpatient (CLI) | payer MEDICARE, BC, SELFPAY ==
[2025-03-08 09:48] LABS: Mucous, Urine 0 SEEN /hpf (<or=2+); Red Blood Cells-Urine 0 SEEN /hpf (0-5)
[2025-03-08 10:46] LABS: Ionized Calcium Order ORDER TUBE
[2025-03-08 12:35] LABS: Hematocrit 34.6 % (37-47); Hemoglobin 10.9 g/dL (12.0-15.0); Immature Granulocytes Count 0.010 X10^3/uL (0.0-0.0); Mean Corp Hgb Conc 31.5 g/dL (32-36); Mean Corpuscular Volume 96.4 fL (81-99); Mean Platelet Vol. 11.1 fl (6.2-12.0); NRBC Flagged by Analyzer 0 % (0-5); Platelet Count 312 K/mm3 (150-450); RBC Distribution Width CV 12.9 % (11.6-14.6); RBC Distribution Width SD 46.2 fl (35.1-43.9); Red Blood Count 3.59 M/mm3 (4.2-5.4); White Blood Count 4.7 K/mm3 (4.4-11.0)
[2025-03-08 12:42] LABS: Color, Urine Yellow (Yellow); Glucose, Dipstick 1000 mg/dl (Normal); Ketone-Dipstick Negative (Negative); Leukocyte Esterase-Dipstick 25 /ul (Negative); Nitrite-Dipstick Negative (Negative); Occult Blood-Urine Negative /ul (Negative); Protein-Dipstick Negative (Negative); Specific Gravity, Urine 1.010 (1.002-1.030); Urine Bilirubin Dipstick Negative (Negative)
[2025-03-08 12:59] LABS: Squamous Epithelial Cells - UA 0-5 SEEN /hpf (5-10)
[2025-03-08 13:22] LABS: Creatinine, Urine (random) 32.30 mg/dL (28.00-217.00); Microalbumin,Random Urine < 12.0 mg/L (<20 mg/L)
[2025-03-08 13:24] LABS: AST(SGOT) 17 U/L (<=31); Alanine Aminotransfer ALT/SGPT 12 U/L (<=34); Albumin, Serum 4.6 g/dL (3.4-4.8); Alkaline Phosphatase 37 U/L (35-104); Anion Gap 13 (5-15); BUN 22 mg/dL (4-19); BUN/Creat Ratio 24.9 RATIO (10-20); Calcium,Total 9.9 mg/dL (7.6-11.0); Carbon Dioxide 24.1 mmol/L (21.0-32.0); Chloride 102 mmol/L (98-108); Cholesterol 138 mg/dL (<=200); Globulin 2.8 g/dL (2.2-4.2); Glucose 198 mg/dL (70-99); Low Density Lipoprotein Calc. 65 mg/dL; Magnesium 2.2 mg/dL (1.5-2.2); Potassium 4.5 mmol/L (3.3-5.1); Triglycerides 105 mg/dL; Very Low Density Lipoprotein 21 mg/dL (5-40); cholesterol:hdl ratio screen 2.64
[2025-03-08 13:27] LABS: PTHIN 28 pg/mL (11-61)
[2025-03-08 14:19] LABS: Vitamin D,25 Hydroxy 42.5 ng/mL (30-100)
[2025-03-12 16:55] LABS: Ferritin 17 ng/mL (22-378); Iron 89 ug/dL (50-170); Iron Binding Capacity,Total 373 ug/dL (250-450); Iron Binding Capacity,Unsat 284 ug/dL (228-428); Vitamin B12 244 pg/mL (180-914)
== END | disposition home or self-care (01) ==
LOC: MFPLAB 09:40
PROVIDERS: PCP Family Medicine; Referring Provider Family Medicine; Visit Provider Family Medicine
DX: E11.59 Type 2 diabetes mellitus with other circulatory complications (principal); E83.52 Hypercalcemia
CPT/HCPCS: 80053; 80061; 81001; 82043; 82306; 82330; 82570; 82607; 82728; 83036; 83540; 83550; 83735; 83970; 84443; 85025